=== PATIENT | female | born 1955 | race Caucasian/White ===

== ENCOUNTER → 2016-04-27 | Outpatient (CLI) | payer OTHER ==
[~2016-04-27] MED LIST: CONJ.6255 PO; HYDR-5688 PO; IBUP-1427 PO; LEVO150T9 PO; TAMS0.4C38 PO
--- NOTE | 2016-04-27 11:10 | DIAGNOSTIC IMAGING REPORT ---
KUB CLINICAL HISTORY: Nephrolithiasis COMPARISON STUDY: 04/09/2016 FINDINGS: There is no pathologic bowel dilatation. There is scattered stool throughout the colon. The renal shadows are partially obscured overlying bowel gas and fecal material. No renal calculi are visualized. There are 2 stable left pelvic basin calcifications. The CT scan dated 04/02/2016, revealed 3 dominant left pelvic basin calcifications, one of which was felt to represent a distal ureteral calculus. It is therefore possible that the ureteral calculus has passed. Please correlate with clinical symptoms. IMPRESSION: 1. No renal calculi identified 2. There are 2 stable left pelvic basin calcifications. Electronically signed by: Javier Ramirez M.D. 04/27/2016 11:08 AM
== END | disposition home or self-care (01) ==
LOC: C.RAD 10:46
PROVIDERS: ATTEND Urology
DX: N20.0 Calculus of kidney (principal)

== ENCOUNTER → 2016-06-16 | Outpatient (CLI) | payer OTHER ==
[2016-06-16 15:05] LABS: BLOOD UREA NITROGEN 22 mg/dl (7-18); BUN/CREATININE RATIO 25.8 (10-20); CREATININE 0.85 mg/dl (0.60-1.20)
== END | disposition home or self-care (01) ==
LOC: C.LAB 13:39
PROVIDERS: ATTEND Urology
DX: N13.30 Unspecified hydronephrosis (principal)

== ENCOUNTER → 2016-06-22 | Outpatient (CLI) | payer OTHER ==
[~2016-06-22] MED LIST changes: +OPTIRAY 300 IV PRN
--- NOTE | 2016-06-22 14:24 | DIAGNOSTIC IMAGING REPORT ---
IVP W/OR W/O TOMOGRAMS CLINICAL HISTORY: N13.30 nephrocalcinosis COMPARISON STUDY: Abdomen series dated 04/27/2016 FINDINGS: Survey images of the abdomen show no obstructive change. There are several pelvic vascular calcifications of the left unaltered. 2. Slightly compromised renal function, diminished amount of intravenous contrast was administered at approximately 50% of volume. There is prompt opacification of both liver collecting systems. There is no evidence for hydronephrosis. Bladder fills well with no sign deformity or filling defect. Post void shows a mild degree residual consistent with a component of bladder obstruction. IMPRESSION: 1. Negative study of the upper urinary tracts. 2. No evidence for an obstructing urinary tract calculus. 3. Moderate to rather significant post void residual raising the possibility of bladder outlet obstructive change. Electronically signed by: Serjio Walsh M.D. 06/22/2016 2:22 PM Dictated Date/Time: 06/22/2016 2:06 PM
== END | disposition home or self-care (01) ==
LOC: C.RAD 12:24
PROVIDERS: ATTEND Urology
DX: N13.30 Unspecified hydronephrosis (principal)

== ENCOUNTER → 2016-07-23 | Outpatient (CLI) | payer OTHER ==
[~2016-07-23] MED LIST changes: -OPTIRAY 300 IV PRN
[2016-07-23 12:17] LABS: GLUCOSE,FASTING 90 mg/dl (70-99)
[2016-07-23 12:30] LABS: CHOLESTEROL 220 mg/dl (0-200); CHOLESTEROL/HDL RATIO 2.2; HDL CHOLESTEROL 101 mg/dl; TRIGLYCERIDES 76 mg/dl (0-150); VERY LOW DENSITY LIPOPROT CALC 15 mg/dl
== END | disposition home or self-care (01) ==
LOC: C.LABPBG 08:20
PROVIDERS: ATTEND Physician Assistant Medical
DX: Z00.00 Encounter for general adult medical examination without abnormal findings (principal); E03.9 Hypothyroidism, unspecified

== ENCOUNTER → 2016-12-23 | Outpatient (CLI) | payer OTHER ==
[~2016-12-23] MED LIST changes: -IBUP-1427 PO
== END | disposition home or self-care (01) ==
LOC: C.PAPS 09:16
PROVIDERS: ATTEND Obstetrics & Gynecology
DX: Z12.4 Encounter for screening for malignant neoplasm of cervix (principal)

== ENCOUNTER → 2017-05-12 | Outpatient (CLI) | payer OTHER ==
--- NOTE | 2017-05-12 15:09 | MAMMOGRAPHY REPORT ---
BILATERAL DIGITAL SCREENING MAMMOGRAM TOMOSYNTHESIS WITH CAD: 05/12/2017 CLINICAL HISTORY: Routine screening. Patient has no complaints. TECHNIQUE: Breast tomosynthesis in addition to standard 2D mammography was performed. Current study was also evaluated with a Computer Aided Detection (CAD) system. COMPARISON: Comparison is made to exams dated: 06/15/2007 mammogram, 06/11/2010 mammogram, and 06/17/19 12 mammogram - [facility]. BREAST COMPOSITION: There are scattered areas of fibroglandular density in both breasts. There are involutional changes comparing to prior available mammograms. FINDINGS: Regional asymmetry of the left upper outer quadrant compared to the right is stable dating back to at least 2007, likely the patient's baseline pattern. No suspicious mass, architectural dist ortion or cluster of suspicious microcalcifications is seen. IMPRESSION: ACR BI-RADS CATEGORY 1: NEGATIVE There is no mammographic evidence of malignancy. A 1 year screening mammogram is recommended. The pa tient will receive written notification of the results. Approximately 10% of breast cancers are not detected with mammography. A negative mammographic report should not delay biopsy if a clinically suggestive mass is present. Aster Ryees M.D. ay/:05/12/2017 13:45:03 Clerical Dentist Assistant: Ade CANTOR(R)(M), [facility] letter sent: Normal 1/2 BI-RADS Code: ACR BI-RADS Category 1: Negative
== END | disposition home or self-care (01) ==
LOC: C.MAMM 12:57
PROVIDERS: ATTEND Obstetrics & Gynecology
DX: Z12.31 Encounter for screening mammogram for malignant neoplasm of breast (principal)

== ENCOUNTER 2020-03-06 08:37 | Observation (INO) ==
--- NOTE | 2020-02-13 14:40 | PAT Medication Instructions ---
Medication Instructions Date of Service February 13, 2020 Home Medications aspirin 325 mg PO BID PRN ibuprofen [Advil] 600 mg PO BID PRN levothyroxine [Synthroid] 150 mcg PO QAM ASK your surgeon for instructions ibuprofen [Advil] 600 mg PO BID PRN ASK your prescriber and surgeon aspirin 325 mg PO BID PRN Take morning of surgery With a small sip of water, OTHERWISE NOTHING TO EAT OR DRINK AFTER MIDNIGHT: levothyroxine [Synthroid] 150 mcg PO QAM Other Notes If you have any questions please call us at [phone] or [phone] or [phone] or [phone]
--- NOTE | 2020-02-15 09:28 | Anesthesiology Consultation ---
Date of Service February 15, 2020 Assessment & Plan (1) Encounter for pre-operative examination: COVID Status: As of 02/14 assessment, patient denies travel to endemic area, known exposure/sick contacts, or symptoms of COVID19. Patient instructed that they and their household members must follow strict social distancing guidelines, wear a mask in public and avoid travel/events/crowds for 14 days prior to surgery. Preoperative COVID19 testing to be completed prior to surgery per surgeon's arrangements. Patient made aware to self-isolate as much as possible between COVID testing and surgery. Chart Review Chart Review: Acceptable Risk for Surgery and Patient seen in Pre Admission Testing Teaching & Discussion Instructed NPO after midnight before surgery, except medications with 15 cc of water. Medication instructions provided according to the PAT guidelines. History Surgery Operation Date: 03/06/20 10:55 Proposed Procedures p Right Total Knee Arthroplasty - Nilo Cortez MD Height/Weight Height: 5 ft 5 in Weight: 80.5 kg Allergies Allergy/AdvReac Type Severity Reaction Status Date / Time meperidine [From Demerol] AdvReac NAUSEA/VOMI Verified 02/15/20 09:23 TING Medications Home Medications Medication Instructions Recorded Confirmed Last Taken aspirin 325 mg PO BID PRN 02/12/20 02/12/20 Unknown ibuprofen [Advil] 600 mg PO BID PRN 02/12/20 02/12/20 Unknown levothyroxine [Synthroid] 150 mcg PO QAM 02/12/20 02/12/20 Unknown Past Medical History Medical History (Updated 02/15/20 @ 13:55 by Junaid Gatn) Degenerative arthritis of knee, bilateral Hypothyroidism H/O hyperthyroidism/graves disease and had radiation treatment Kidney stones hx Osteoarthritis Sciatica Exercise / Class Metabolic Activity II 4-5 Yardwork/Stairs/Walk up hill Past Surgical History Surgical History History of lithotripsy History of splenectomy itp History of tonsillectomy and adenoidectomy Hx of arthroscopy of knee right and left Hx of colonoscopy Hx of LASIK right Past Anesthesia History No Hx of Anesthesia Complications and No Family Hx of Anesthesia Complications History of PONV No Hx of PONV (EXCEPT FROM DEMEROL) and Hx of Motion Sickness Social History Smoking Status: Never smoker Do You Dip or Chew Tobacco: No Hx Alcohol Use: No Hx Substance Use: No substance use type: does not use Review of Systems Pt denies any recent chest pain, shortness of breath, palpitations, cough, fever, URI. + occ acid reflux, relieved by tums Physical Exam Vital Signs BP: 138/83 (pt reports this is quite high for her) P: 69bpm SPO2: 97% RA T: 98.3 R: 12 ENMT Mouth: + dental restorations (few crowns on R molars); no chipped teeth and no loose teeth Thyromental Distance: < 3.5 Finger Breadths (2) Mallampati Class: I Neck + shortened thyromental distance; neck extension not limited Respiratory normal respiratory effort Auscultation: lungs clear to auscultation bilaterally Cardiovascular Rate/Rhythm: regular rate and regular rhythm Heart Sounds: no murmur Extremities: no edema Testing Laboratory Results 02/15/20 09:36 02/15/20 09:36 PT 10.3 Seconds (9.0-12.0) 02/15/20 09:36 INR 1.0 (0.9-1.1) 02/15/20 09:36 APTT 27.8 Seconds (21.0-31.0) 02/15/20 09:36 Blood Type O Positive 02/15/20 09:36 Antibody Screen NEGATIVE 02/15/20 09:36 Electrocardiogram Date: 02/15/20 Findings: + NSR @ (66bpm) Nondiagnostic inferior Q waves. No significant change from 2016. Chest X-Ray Date: 02/15/20 Findings: + NAD
--- NOTE | 2020-02-15 10:32 | XRay Report ---
TWO VIEW CHEST CLINICAL HISTORY: Preoperative examination. FINDINGS: PA and lateral chest radiographs are compared to study dated 04/08/2016. The cardiomediasti nal silhouette is unremarkable. The lungs and pleural spaces are clear. There is no pneumothorax. Th e bony thorax appears intact. IMPRESSION: No active disease in the chest. ACT 112: Negative or not required by law. Electronically signed by: Bert Gramajo M.D. 02/15/2020 10:30 AM
[2020-02-15 10:35] LABS: BUN Creatinine Ratio 22.3 (10-20); Calcium 9.4 mg/dl (8.5-10.1); Creatinine Clr Calc Pharmacy 62.2 ml/min; Est GFR (African American) 74.7; Est GFR (Non-African American) 64.4; Potassium 3.7 mmol/L (3.5-5.1)
[2020-02-15 10:38] LABS: Partial Thromboplastin Time 27.8 Seconds (21.0-31.0); Prothrombin Time 10.3 Seconds (9.0-12.0)
[2020-02-15 10:46] LABS: Basophils # (auto) 0.08 K/uL (0-0.2); Basophils % (auto) 1.2 %; Eosinophils % (auto) 3.1 %; Hematocrit (blood only) 39.4 % (37-47); Hemoglobin 13.3 g/dL (12.0-16.0); Lymphocytes # (auto) 1.93 K/uL (1.2-3.4); Lymphocytes % (auto) 30.1 %; Mean Corpuscular Hgb Conc 33.8 g/dL (32-36); Mean Corpuscular Volume 94.7 fL (80-100); Mean Platelet Volume 11.2 fL (7.4-10.4); Monocytes % (auto) 12.5 %; Neutrophils # (auto) 3.41 K/uL (1.4-6.5); Neutrophils % (auto) 53.1 %; Platelet Count 444 K/uL (130-400); RDW Coefficient of Variation 14.9 % (11.5-14.5); RDW Standard Deviation 52.1 fL (36.4-46.3); Red Blood Count 4.16 M/uL (4.2-5.4); White Blood Count 6.42 K/uL (4.8-10.8)
--- NOTE | 2020-02-15 11:20 | Electrocardiogram Report ---
Test Reason : Blood Pressure : / mmHG Vent. Rate : 066 BPM Atrial Rate : 066 BPM P-R Int : 170 ms QRS Dur : 082 ms QT Int : 418 ms P-R-T Axes : 069 076 057 degrees QTc Int : 438 ms Normal sinus rhythm Nondiagnostic inferior Q waves Normal ECG When compared with ECG of 02-OCT-2015 15:42, No significant change was found Confirmed by Donovan Dye ([id number]) on 02/15/2020 11:20:42 AM Referred By: Nilo Cortez Confirmed By:Donovan Dye
[~2020-03-06 08:37] MED LIST changes: +ACETAMINOPHEN 500 MG TAB PO SCH; +BUPIVACAINE 0.25% 30 ML VIAL ONE; +BUPIVACAINE 0.5 % 5 MG/1 ML PF 10ML VIAL ONE; +BUPIVACAINE LIPOSOME/PF 266 MG, BUPIVACAINE/EPINEPHRINE 50 ML, SODIUM CHLORIDE 0.9% 30 ... INFIL SCH; -CONJ.6255 PO; +FAMOTIDINE 20 MG TAB PO SCH; +GABAPENTIN 300 MG CAP PO SCH; -HYDR-5688 PO; -LEVO150T9 PO; +LR 500ML BOLUS, THEN 15ML/HR IV SCH; +LR 60ML/HR IV SCH; -TAMS0.4C38 PO; +TRANEXAMIC ACID 1,000 MG **IV Intra-op IV SCH; +ceFAZolin 2000MG 2,000 MG/15 ML SYR IV SCH
--- NOTE | 2020-03-06 09:00 | History & Physical Bridge Note ---
Date of Service March 06, 2020 History & Physical Bridge Note I have examined the patient, reviewed the History & Physical and in the interval since the performance of the History & Physical I have noted the following changes of clinical significance: no changes noted
[2020-03-06] MEDS ORDERED: LIDOCAINE HCL 2% 2 ML VIAL/AMP(20MG/ML) INFIL ONE (09:43)
[2020-03-06] MEDS ORDERED: ePHEDrine sulfate 50 MG/ML SYR ONE (09:43)
[2020-03-06] MEDS ORDERED: MIDAZOLAM HCL 1 MG/ML 2ML VIAL ONE ×2 (09:43→09:44)
[2020-03-06] MEDS ORDERED: fentaNYL citrate 100 MCG/2 ML VIAL ONE (09:43)
[2020-03-06] MEDS ORDERED: PROPOFOL IV EMULSION 10 MG/ML 20 ML VIAL IV ONE ×2 (09:43→12:01)
[2020-03-06] MEDS ORDERED: ATROPINE SULFATE 0.1 MG/ML 10ML SYR IV PRN (09:57)
[2020-03-06] MEDS ORDERED: ONDANSETRON INJ 2 MG/ML 2 ML VIAL IV PRN (09:57)
[2020-03-06] MEDS ORDERED: fentaNYL citrate 100 MCG/2 ML VIAL IV PRN (09:57)
[2020-03-06] MEDS ORDERED: ePHEDrine sulfate 50 MG/ML AMP IV PRN (09:57)
[2020-03-06] MEDS ORDERED: ONDANSETRON INJ 2 MG/ML 2 ML VIAL IV STA ×2 (09:59→10:08)
[2020-03-06] MEDS ORDERED: ONDANSETRON INJ 2 MG/ML 2 ML VIAL ONE ×2 (10:01→12:09)
[2020-03-06] MEDS ORDERED: PROMETHAZINE HCL 6.25 MG in SODIUM CHLORIDE 0.9% 50 ML IV STA (10:15)
[2020-03-06] MEDS ORDERED: SODIUM CHLORIDE 0.9% PF 50 ML VIAL ONE (11:27)
[2020-03-06] MEDS ORDERED: BUPIVACAINE LIPOSOME 1.3% 266 MG/20 ML VIAL ONE (11:27)
[2020-03-06] MEDS ORDERED: BACITRACIN INJ 50,000 UNIT VIAL ONE (11:27)
[2020-03-06] MEDS ORDERED: BUPIVACAINE 0.25% 30 ML VIAL ONE (11:28)
[2020-03-06] MEDS ORDERED: EPINEPHrine INJ 1 MG/ML AMP ONE (11:28)
--- NOTE | 2020-03-06 13:12 | Post Operative Brief Note ---
PG Immediate Post Op with CF Date of Surgery March 06, 2020 Pre & Post Diagnosis Operation Date: 03/06/20 10:55 Pre-Op Diagnosis: Right Knee Degenerative Joint Disease Post-Op Diagnosis: Right Knee Degenerative Joint Disease I identified the patient and participated in the time-out.: Yes Procedure Operation Date: 03/06/20 10:55 Actual Procedures p Right Total Knee Arthroplasty, Cemented(Right) - Nilo Cortez MD Surgeon Nilo Cortez MD Burn Crew Member ANDREA Chaidez Estimated Blood Loss 50 Findings Consistent with Post-Op Diagnosis Fluids 2000 cc Specimens Specimen Description: Permanent Specimen A: Right knee bone and tissue Drains Pack Catheter Anesthesia Type Spinal MAC Complications none Disposition Accompanied Patient To Recovery: No Disposition: Recovery Room
--- NOTE | 2020-03-06 13:24 | Operative Report ---
Post Operative Report Pre & Post Diagnosis Operation Date: 03/06/20 10:55 Pre-Op Diagnosis: Right Knee Degenerative Joint Disease Post-Op Diagnosis: Right Knee Degenerative Joint Disease I identified the patient and participated in the time-out.: Yes Procedure Operation Date: 03/06/20 10:55 Actual Procedures p Right Total Knee Arthroplasty, Cemented(Right) - Nlio Cortez MD Surgeon Nilo Cortez MD Assistant Baseball Coach ANDREA Chaidez Estimated Blood Loss 50 Findings Consistent with Post-Op Diagnosis Operative findings revealed advanced right knee DJD. She had slight valgus alignment to her knee. She did have grade 4 changes the lateral compartment as well as patellofemoral compartments. Not a lot of eburnation. She did have a little eburnation of her trochlea. Moderate to large knee joint effusion. Fluids 2000 cc. Specimens Right knee sent for pathology. Drains None. Anesthesia Type Spinal MAC Complications none Disposition Accompanied Patient To Recovery: No Disposition: Recovery Room Indications Patient is a 65-year-old female has had a long history of bilateral knee pain and discomfort and swelling. She underwent a right knee arthroscopy about 6 years ago for patellofemoral issues and had a lateral release. She did okay for a couple years but over the past several years she developed increased pain and discomfort in both knees. The right knee has been worse than the left. X-rays show progressive right knee arthritis particularly in the lateral and greene llofemoral compartments. She elected proceed with surgical treatment Description of Procedure Operative implants consist of: 1. Biomet Vanguard size 62.5 right posterior stabilized femoral component. 2. Biomet size 63 tibial tray. 3. 10 mm posterior stabilized polyethylene insert. 4. 28 x 8 all polypatella. Patient was taken to the operating identified placed on the operating table supine position protectors were properly padded. IV antibiotics tried by the anesthesia team. A Pack catheter was placed in sterile fashion. Right thigh turn was then placed in the right lower extremity was then prepped and draped in usual sterile fashion. The right leg was elevated exsanguinated with use of an Esmarch and turns placed at 3 mmHg. An anterior approach to the right knee was then performed to longitudinal incision centered over the patella. Sharp dissection was carried through subcutaneous tissue down the extensor mechanism. A medial parapatellar arthrotomy incision was made. Some subperiosteal dissection was carried out medially. The fat pad was resected beneath patella tendon. Lateral patellofemoral ligament was released. The patella was subluxated laterally and the knee was flexed. The osteophytes were taken off the distal femur. The ACL and PCL were then released from the distal femur and the tibia subluxated anter iorly. The external tibial alignment jig was then placed in the interface the tibia and adjusted 12 mm medially. Proximal tibial cut was made to remove about 3 to 4 mm of bone from the medial side. The tibia was then sized to a size 63. We did have to downsize this in order to get appropriate rotation with respect of the tibial tubercle. Attention then drawn to the femur. The distal femur was entered the sharp drop with intramedullary canal was suction. A right 5 degree valgus cutting guide was placed. Distal femoral cutting block was pinned in place. Distal femoral cut was made to take an additional 3 mm of bone off distal femur. The femur was then sized to a size 62.5. The AP cutting block was then placed parallel to the epicondylar axis which was 4 degrees of external rotation. The anterior cut, anterior chamfer, posterior cut, posterior chamfer cuts were made. Box cutting guide was placed in a just slight lateral box cut was made. The knee was flexed. The remnants of the medial lateral menisci were excised. The osteophytes were taken off the posterior aspect of the femur. A trial femoral component was placed. Tibial tray was pinned in maximum external rotation and the drill and stem punch were used to create defect in proximal to for the tibial tray. The knee was then trialed and the 10 mm insert fit most appropriately. Attention drawn the patella. The patella was cleaned of all soft tissues. Patella thickness measured 18 mm in thickness and was cut down to 12. Was sized to a size 28 patella. The locals were drilled for the 28 patella. The lateral osteophyte is moved. Patella button was placed. Knee was taken through range of motion and the patella tracked nicely with no thumbs test. Attention drawn to place the permanent components. All trial components were removed. A bone plug was placed in the distal femur limit blood loss put a double batch Palacos G cement was mixed. A Biomet Wellntelguard size 62.5 right posterior stabilized femoral component, a size 63 tibial tray, a 10 mm posterior stabilized polyethylene insert, and a 28 x 8 all polypatella were then cemented in place. Knee was brought out in full extension total cement hardened. Final cement check was then performed. The pericapsular tissues were injected with total 100 cc of combination of 20 cc of Exparel, 30 cc normal saline, 50 cc of quarter percent Marcaine with epinephrine. The patient did receive 1 g tranexamic acid. The tourniquet was then let down for final tourniquet time of 47 minutes. Hemostasis assured use electrocautery. The wound was once again irrigated. The extensor mechanism closed with combination 1 PDS suture #1 Vicryl suture in [id number] fashion. Extensor mechanism checked found to be intact with subcutaneous tissue then closed 2 Dexon suture in a buried interrupted fashion the skin was closed skin marcia. Leg was then cleaned dried a sterile dressing both Xeroform, 4 x 4's, sterile cast padding, Umesh bandage were applied. Patient then transferred to the recovery room in stable condition. The patient tolerated the procedure well and there were no complications. Orlando Chaidez, my physician materials assistant, was present for the entire procedure. His assistance was essential and required for appropriate patient positioning, prepping and draping, surgical exposure, performing the technical details of the operation, placement the implants, closure of the wound, and placement of the sterile bandage. I attest to the content of the Intraoperative Record and any orders documented therein. Any exceptions are noted below.
--- NOTE | 2020-03-06 14:06 | XRay Report ---
XR knee RT 1 or 2V routine HISTORY: 65 years-old Female Surgical Post Op right knee total joint arthroplasty COMPARISON: Knee radiographs 02/08/2020 TECHNIQUE: 2 views of the right knee FINDINGS: Right knee total joint arthroplasty and patella resurfacing. Anterior midline skin marcia are noted along with expected postsurgical soft tissue swelling and deep tissue air with surgical drainage cath eter. IMPRESSION: Right knee total joint arthroplasty and patella resurfacing with expected postoperative c hanges. ACT 112: Negative or not required by law. The above report was generated using voice recognition software. It may contain grammatical, syntax o r spelling errors. Electronically signed by: Logan Boyd M.D. 03/06/2020 2:04 PM
--- NOTE | 2020-03-06 14:31 | Anesthesiology Progress Note ---
Date of Service March 06, 2020 Anesthesia Post Procedure Vital Signs Vital Signs: Temp Pulse Pulse Resp BP BP Pulse Ox 03/06/20 14:05 72 14 126/63 96 03/06/20 13:55 71 14 131/49 L 100 03/06/20 13:45 73 14 123/60 100 03/06/20 13:35 73 12 124/67 96 03/06/20 13:25 82 14 114/62 98 03/06/20 13:18 36.6 C 86 10 L 107/54 L 99 03/06/20 09:50 76 18 162/93 H 100 03/06/20 09:15 36.8 C 72 20 151/87 H 98 Pain Intensity Right Knee: Pain Intensity: 6 Transfer of Care Handoff Completed per policy Notes Mental Status: alert / awake / arousable and participated in evaluation Patient Amnestic to Procedure: Yes Nausea / Vomiting: adequately controlled Pain: adequately controlled Airway Patency, RR, SpO2: stable & adequate BP & HR: stable & adequate Hydration State: stable & adequate Neuraxial Anesthesia: was administered and sensory block is resolving Anesthetic Complications: no major complications apparent and Pt Satisfied with anesthetic care
[2020-03-06] MEDS ORDERED: HYDROmorphone INJ 0.5 MG/0.5 ML SYR IV PRN (14:37)
[2020-03-06] MEDS ORDERED: bisacodyL 10 MG SUPP PR PRN (14:45)
[2020-03-06] MEDS ORDERED: METOCLOPRAMIDE HCL INJ 5 MG/ML 2 ML VIAL IV PRN (14:45)
[2020-03-06] MEDS ORDERED: NALOXONE HCL 0.4 MG/1 ML VIAL/CARP IV PRN (14:45)
[2020-03-06] MEDS ORDERED: ALUMINUM/MAGNESIUM SUSP 30 ML UDC PO PRN (14:45)
[2020-03-06] MEDS ORDERED: MAGNESIUM HYDROXIDE SUSP 30 ML UDC PO PRN (14:45)
[2020-03-06] MEDS: ONDANSETRON INJ 2 MG/ML 2 ML VIAL IV PRN (14:56)
[2020-03-06] MEDS ORDERED: LORATADINE 10 MG TAB PO PRN (15:00)
[2020-03-06] MEDS: KETOROLAC TROMETHAMINE 15 MG/ML VIAL IV SCH ×2 (15:50→21:08)
[2020-03-06] MEDS: SODIUM CHLORIDE 0.9% 1000ML 1,000 ML IV SCH (15:51)
[2020-03-06] MEDS: Scopolamine CHECK PATCH PLACEMENT SCH (15:51)
[2020-03-06] MEDS: ACETAMINOPHEN 500 MG TAB PO SCH ×2 (15:51→21:07)
[2020-03-06] MEDS: FERROUS GLUCONATE 324 MG TAB PO SCH (17:27)
[2020-03-06] MEDS: oxyCODONE HCL IR 5 MG TAB (IMMEDIATE RELEASE) PO PRN (17:27)
[2020-03-06] MEDS: ASCORBIC ACID 500 MG TAB PO SCH (17:27)
[2020-03-06] MEDS ORDERED: TRANEXAMIC ACID / 0.7% NACL 1,000 MG/100 ML BAG IV SCH (19:15)
[2020-03-06] MEDS: ceFAZolin 1000MG 1,000 MG/7.5 ML SYR IV SCH (19:41)
[2020-03-06] MEDS ORDERED: SENNA 8.6 MG TAB PO SCH (21:00)
[2020-03-06] MEDS: TAPENTADOL HCL ER 50 MG TABCR PO SCH (21:07)
[2020-03-06] MEDS: ASPIRIN 81 MG ECTAB PO SCH (21:07)
[2020-03-06] MEDS: DOCUSATE SODIUM 100 MG CAP PO SCH (21:07)
[2020-03-07] MEDS: Scopolamine CHECK PATCH PLACEMENT SCH ×2 (00:01→09:00)
[2020-03-07] MEDS: oxyCODONE HCL IR 5 MG TAB (IMMEDIATE RELEASE) PO PRN ×3 (00:23→12:04)
[2020-03-07] MEDS: SODIUM CHLORIDE 0.9% 1000ML 1,000 ML IV SCH (02:09)
[2020-03-07] MEDS: ceFAZolin 1000MG 1,000 MG/7.5 ML SYR IV SCH (03:34)
[2020-03-07] MEDS: KETOROLAC TROMETHAMINE 15 MG/ML VIAL IV SCH ×2 (03:34→09:02)
[2020-03-07] MEDS: ACETAMINOPHEN 500 MG TAB PO SCH (05:16)
[2020-03-07] MEDS ORDERED: LEVOTHYROXINE SODIUM 150 MCG TABLET PO SCH (06:30)
[2020-03-07 07:11] LABS: Hematocrit (blood only) 33.8 % (37-47); Hemoglobin 10.8 g/dL (12.0-16.0); Mean Corpuscular Hemoglobin 30.9 pg (25-34); Mean Corpuscular Volume 96.6 fL (80-100); Mean Platelet Volume 11.1 fL (7.4-10.4); Platelet Count 372 K/uL (130-400); RDW Coefficient of Variation 15.2 % (11.5-14.5); RDW Standard Deviation 53.7 fL (36.4-46.3); White Blood Count 9.33 K/uL (4.8-10.8)
[2020-03-07 07:41] LABS: BUN Creatinine Ratio 18.4 (10-20); Calcium 8.2 mg/dl (8.5-10.1); Creatinine Clr Calc Pharmacy 71.2 ml/min; Est GFR (African American) 88.4; Est GFR (Non-African American) 76.3; Potassium 3.7 mmol/L (3.5-5.1)
--- NOTE | 2020-03-07 08:32 | Progress Notes ---
DATE: 03/07/2020 SUBJECTIVE: A 65-year-old white female postop day 1 from right knee replacement. She is doing pretty well. Had a reasonable night. Pain has been controlled. No chest pain or shortness of breath. Not feeling dizzy or lightheaded. OBJECTIVE: VITAL SIGNS: Temperature is 36.3. Vital signs stable. GENERAL: Shows a pleasant, middle-aged female. She is lying in bed, looks pretty comfortable this morning. EXTREMITIES: Examination of the right leg reveals the leg to be well aligned. Dressing is clean, dry and intact. She can dorsiflex and plantarflex her foot appropriately. She is neurologically intact. LABORATORY DATA: Hemoglobin 10.8. Hematocrit 33.8. Electrolytes are pending. ASSESSMENT: A 65-year-old white female postoperative day 1 from right knee replacement, doing reasonably well. Pain is controlled. She is neurologically intact. PLAN: 1. DVT prophylaxis including thigh-high TEDs, SCDs, and aspirin twice a day. 2. PT/OT. Weight bear as tolerated. Right total knee protocol. 3. Pain control, doing well with current pain regimen. 4. Disposition: Plan to discharge to home with some home health later today if she does okay in therapy and her pain is controlled.
[2020-03-07] MEDS: FERROUS GLUCONATE 324 MG TAB PO SCH (09:00)
[2020-03-07] MEDS: DOCUSATE SODIUM 100 MG CAP PO SCH (09:00)
[2020-03-07] MEDS ORDERED: MULTIVITAMIN TAB PO SCH (09:00)
[2020-03-07] MEDS: ASCORBIC ACID 500 MG TAB PO SCH (09:00)
[2020-03-07] MEDS: TAPENTADOL HCL ER 50 MG TABCR PO SCH (09:00)
[2020-03-07] MEDS: ASPIRIN 81 MG ECTAB PO SCH (09:00)
[2020-03-07 11:08] VITALS: PULSE 77; TEMP 97.9
[2020-03-07 11:50] VITALS: O2SAT 96
[2020-03-07 11:58] VITALS: BP 162/93
[2020-03-07] MEDS: ONDANSETRON INJ 2 MG/ML 2 ML VIAL IV PRN (12:07)
--- NOTE | 2020-03-11 15:35 | Discharge Summary ---
Date of Service March 11, 2020 Admission HPI Per Admitting Provider Documented in the H & P Admission Exam (Per Admitting) Constitutional Documented in the H & P Discharge Data Consultations 03/06/20 14:37 Consult Case Management - Discharge Planning Routine Procedures Performed Operation Date: 03/06/20 10:55 Actual Procedures p Right Total Knee Arthroplasty, Cemented(Right) - Nilo Cortez MD Hospital Course (1) Status post total right knee replacement: This patient is a 65 year old female admitted on 03/06/20 and underwent total knee arthroplasty. She tolerated the procedure well and there were no complications. Transferred to the PACU post op and later to the orthopedic floor for further care. She was given ancef for antibiotic prophylaxis. She was also given JITENDRA stockings, SCDs, and aspirin for DVT prophylaxis. Hemoglobin, hematocrit, and vital signs were monitored during her hospital stay and remained stable. Did not require any blood transfusions. There were no complications during her hospital stay. By post op day #1 the patient was tolerating a regular diet, pain was reasonably controlled with oral pain medicine, and she was participating in physical therapy. On post op day #1 the patient was discharged home and set up with home health care. She was given printed discharge instructions including prescriptions for extra strength tylenol, aspirin, iron supplement, zofran, and tramadol. Continue physical therapy, weight bearing as tolerated. Continue JITENDRA stockings. Follow up approximately 2 weeks post op or sooner if there are problems or concerns. Coding Level of Care Code None Diagnoses Status post total right knee replacement Z96.651
== END 2020-03-07 12:52 | disposition home health service (06) ==
LOC: 3E 08:37 → ASU 08:37
DX: Z79.899 Other long term (current) drug therapy; Z79.890 Hormone replacement therapy; M17.11 Unilateral primary osteoarthritis, right knee; Z79.82 Long term (current) use of aspirin; E66.9 Obesity, unspecified; M54.30 Sciatica, unspecified side; E03.9 Hypothyroidism, unspecified; M70.61 Trochanteric bursitis, right hip; K21.9 Gastro-esophageal reflux disease without esophagitis; Z88.5 Allergy status to narcotic agent

== ENCOUNTER 2024-03-02 19:48 | Inpatient (IN) ==
[2024-03-02 20:25] LABS: Basophils # (auto) 0.11 K/uL (0.00-0.20); Basophils % (auto) 0.4 %; Eosinophils # (auto) 13.17 K/uL (0.00-0.50); Eosinophils % (auto) 48.9 %; Hematocrit (blood only) 34.9 % (37.0-47.0); Hemoglobin 12.4 g/dl (12.0-16.0); Immature Granulocytes # (auto) 0.12 K/uL (0.01-0.20); Immature Granulocytes % (auto) 0.4 %; Lymphocytes # (auto) 2.46 K/uL (1.20-3.40); Lymphocytes % (auto) 9.1 %; Mean Corpuscular Hemoglobin 31.2 pg (25.0-34.0); Mean Corpuscular Hgb Conc 35.5 g/dL (32.0-36.0); Mean Corpuscular Volume 87.9 fL (80.0-100.0); Mean Platelet Volume 10.1 fL (9.4-12.4); Monocytes # (auto) 1.14 K/uL (0.11-0.59); Monocytes % (auto) 4.2 %; Neutrophils # (auto) 9.92 K/uL (1.40-6.50); Platelet Count 493 K/uL (130-400); RDW Coefficient of Variation 14.2 % (11.5-14.5); RDW Standard Deviation 45.7 fL (36.4-46.3); Red Blood Count 3.97 M/uL (4.20-5.40); White Blood Count 26.92 K/ul (4.8-10.8)
[2024-03-02 20:41] LABS: Albumin Level 3.7 gm/dl (3.4-5.0); Bilirubin,Total 0.4 mg/dl (0.2-1.0); Calcium 9.8 mg/dl (8.6-10.3); Creatinine Clr Calc Pharmacy 46.4 ml/min; Globulin 3.7 gm/dl (2.5-4.0); Total Protein 7.4 gm/dl (6.0-8.3)
[2024-03-02 20:58] LABS: Appearance Urine Clear (Clear); Bilirubin Urine Negative (Negative); Blood Urine Negative (Negative); Color Urine Yellow; Glucose Urine UA Negative (Negative); Ketones Urine Negative (Negative); Leukocyte Esterase Urine Negative (Negative); Nitrite Urine Negative (Negative); Protein Urine Negative (Negative); Specific Gravity Urine 1.009 (1.000-1.030); Urobilinogen Urine Negative (Negative); pH Urine 6.5 (4.5-7.5)
--- NOTE | 2024-03-02 21:23 | Emergency Department Note ---
Impression & Plan Abdominal pain, Leukocytosis, Abnormal LFTs, Lesion of liver ED Provider Note ED Provider Note NAME: CHERISE MORALES AGE:69 SEX: Female : 1955 ARRIVES VIA: Private vehicle INFORMANT: Patient ED PROVIDER(s): Chanda Wright DO CHIEF COMPLAINT: Referred by PCP, right upper quadrant abdominal pain HPI: This is a 69-year-old female presents emergency department after being referred here by her PCP due to abnormal outpatient labs. Patient states for the last 2 to 3 days she has noticed some increased fatigue, mild back pain, right upper quadrant pain, and fevers. She has been taking Advil intermittently. She states her temperatures at home was 100 F but this was after she had already taken Advil. She states many years ago she did have a history of a bleeding ulcer however has not had any issues in recent years and no longer takes any stomach medications. She denies any recent upper respiratory symptoms or cough. She denies any sense of abdominal pain or bloating. She states the pain is otherwise nonradiating. She states she also has some pain across her low back. She denies any recent travel or change in activity. PAST MEDICAL HISTORY:See Below PAST SURGICAL HISTORY:See Below FAMILY HISTORY:See Below SOCIAL HISTORY:See Below HOME MEDICATIONS:See Below ALLERGIES:See Below VITALS:See Below PHYSICAL EXAMINATION: GENERAL: alert, well appearing, well nourished, no distress, non-toxic EYE EXAM: normal conjunctiva, PERRL and EOM's grossly intact OROPHARYNX: no exudate, no erythema, lips, buccal mucosa, and tongue normal and mucous membranes are moist NECK: supple, no nuchal rigidity, no adenopathy, non-tender LUNGS: Clear to auscultation. Normal chest wall mechanics, no w/r/r HEART: no murmurs, S1 normal and S2 normal ABDOMEN: abdomen soft, tenderness with palpation along the right costal margin in the right upper quadrant, normo-active bowel sounds, no masses, no rebound or guarding. SKIN: no rashes, petechiae, orbruising UPPER EXTREMITIES: upper extremities are grossly normal. FROM, nml pulses b/l. LOWER EXTREMITIES: No pitting edema. FROM, nml pulses b/l. NEURO EXAM: Normal sensorium, cranial nerves II-XII grossly intact, normal speech, no facial droop,nogross weakness of arms, no gross weakness of legs. Gross sensation intact. No ataxia. Vital Signs: reviewed and remarkable Differential Diagnosis: Cholecystitis, choledocholithiasis, pancreatitis, pneumonia, colitis, bowel obstruction, GI bleed, duodenitis, as well as others were considered MEDICAL DECISION MAKING: This is a 69-year-old female who presents emergency room due to concern for right upper quadrant abdominal pain and mild fever at home over the last 2 days. Patient concern for possible gallbladder problem. She was afebrile and hemodynamically stable on arrival. Labs drawn and sent, IV established, EKG performed at bedside interpreted by me and patient monitored on telemetry. Patient noted to have significant leukocytosis, procalcitonin and lactic acid added and patient given a dose of IV Zosyn. Patient sent for right upper quadrant ultrasound initially. This was ultimately read by outside overnight radiology as negative. Due to concern for abnormal LFTs and significant leukocytosis as noted on labs, she was sent for CT of the abdomen/pelvis. CT revealed multiple hepatic lesions suggestive of possible metastatic process. Patient with no prior history of malignancy and recent negative screening colonoscopy. Patient updated on all results and we discussed differential diagnosis at bedside. Case discussed with on-call hospitalist as well as on- call GI. Consultation(s): 0335: Discussed with Dr. Garcia, [facility] hospitalist team, for additional evaluation and management. 0358: Discussed with Dr. Watts, GI. Recommends oncology consult and possibly ID. No role for MR right now, patient likely to need PET instead. 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 She also had thyroid dysfunction at that time. She states this autoimmune dysfunction presented itself again last year and she was ultimately diagnosed in May as a type I diabetic. Patient did just recently have a routine screening colonoscopy that was reported to her as reassuring. No prior history of malignancy. Diagnostics Interpreted By Me: -ECG: Normal sinus at 74, normal axis, normal intervals, no acute ST/T wave changes -Cardiac Monitoring: An order was placed for continuous cardiac monitoring. The monitor shows a rate of 70 with normal sinus rhythm. -Laboratory studies: As stated above and show below. -Imaging studies: US abd: no gallstones Triage Nursing Note Reviewed Prior/Outside Records Reviewed Past Med/Surg History Problem List Lesion of liver (Acute) Eosinophilia Abnormal CT of liver Abnormal LFTs (Acute) Leukocytosis (Acute) Abdominal pain (Acute) Type 1 diabetes mellitus Colon cancer screening Vitamin D deficiency Hyperlipidemia SILVA (dyspnea on exertion) Dizziness Tachycardia Foot pain, left CMC arthritis, thumb, degenerative Nephrolithiasis Urgency incontinence Left foot pain Left knee DJD Contusion of right elbow Status post total right knee replacement Encounter for preoperative screening laboratory testing for COVID-19 virus Trochanteric bursitis, right hip Degenerative arthritis of knee, bilateral Renal colic (Acute) Hypothyroidism Sciatica History of splenectomy itp Medical History History of tachycardia [facility] Diabetes mellitus recent diagnosis. following with [facility]. History of Graves' disease History of radioactive iodine thyroid ablation History of ITP Kidney stones hx Osteoarthritis Surgical History History of right knee joint replacement Hx of colonoscopy History of lithotripsy Hx of LASIK right Hx of arthroscopy of knee right and left History of tonsillectomy and adenoidectomy Social History Smoking Status: Never smoker Second Hand Exposure: No; Do You Dip or Chew Tobacco: No; Tobacco Cessation Education Requested by Patient: No Hx Alcohol Use: No Hx Substance Use: No Preferred Language: Bruneian Communication Ability: Effective [employer] Required: No Beliefs That Will Affect Care: None marital status: Current Living Situation: Spouse Other Information That Helps Us Care for You: No Feels Safe at Home: Yes Safety Concerns: Feels Safe At This Time Assistive Devices: None Allergies Allergies Allergy/AdvReac Type Severity Reaction Status Date / Time meperidine [From Demerol] AdvReac Severe NAUSEA/VOMI Verified 11/30/23 14:09 TING Home Meds Home Medications Medication Instructions Recorded Confirmed ibuprofen 200 mg tablet (Advil) 600 mg PO BID PRN Pain 02/12/20 03/03/24 melatonin 10 mg capsule 10 mg PO HS PRN Sleep 06/02/23 03/03/24 lisinopril 2.5 mg tablet 2.5 mg PO QDL 06/30/23 03/03/24 rosuvastatin 20 mg tablet (Crestor) 20 mg PO QDL 06/30/23 03/03/24 lisinopril 2.5 mg tablet 2.5 mg PO QPM 03/03/24 03/03/24 omeprazole 20 mg capsule,delayed 20 mg PO DIRECTED PRN reflux 03/03/24 03/03/24 release Previous Rx's Medication Instructions Recorded blood sugar diagnostic (OneTouch #100 ea 04/05/23 Verio test strips) blood-glucose meter (OneTouch #1 ea 04/05/23 Verio Reflect Meter) lancets 33 gauge (OneTouch Delica #100 ea 04/05/23 Plus Lancet) pen needle, diabetic 32 gauge x #100 ea 04/28/23 5/16" (Droplet Pen Needle) pen needle, diabetic 31 gauge x #400 ea 06/02/23 1/4" (Microdot Insulin Pen Needle) insulin pump cart,automated,BT #10 ea 09/02/23 (Omnipod 5 G6 Pods (Gen 5) subcutaneous cartridge) insulin pump cartridge,automated #1 ea 09/02/23 dose,BT with controller subcutaneous (Omnipod 5 G6 Intro Kit (Gen 5) subcutaneous cartridge with controller) blood sugar diagnostic (Embrace #100 ea 09/24/23 PRO test strips) levothyroxine 100 mcg tablet 100 mcg PO DAILY #90 tabs 12/15/23 insulin lispro 100 unit/mL 66 unit (0.66 mL) continuous 12/30/23 subcutaneous solution (Humalog subcutaneous infusion DAILY #60 mL U-100 Insulin) Results & Data (ED) Vital Signs Vital Signs - 24 hr 03/02/24 19:53 03/02/24 20:38 03/02/24 20:57 Temperature 36.8 C Temperature Source Oral Pulse Rate 83 75 Pulse Rate [Finger] 72 Pulse Rhythm [Finger] Pulse Strength [Finger] Respiratory Rate 20 16 Respiratory Effort / Characteristics Respiratory Depth Blood Pressure 130/73 Blood Pressure [Left Arm] 142/79 H Blood Pressure Mean 92 Blood Pressure Mean [Left Arm] 100 Pulse Oximetry 97 99 Oxygen Delivery Method Room Air Room Air Sepsis Recent Fever Within 48 Hours Yes Sepsis New/Unexplained Change in Mental Status No Sepsis Action Taken by Nursing No Action Required 03/03/24 00:38 03/03/24 02:00 Temperature Temperature Source Pulse Rate 67 Pulse Rate [Finger] 82 Pulse Rhythm [Finger] Regular Pulse Strength [Finger] Normal Respiratory Rate 16 Respiratory Effort / Characteristics Non-Labored Spontaneous Respiratory Depth Normal Blood Pressure Blood Pressure [Left Arm] 117/67 Blood Pressure Mean Blood Pressure Mean [Left Arm] 83 Pulse Oximetry Oxygen Delivery Method Sepsis Recent Fever Within 48 Hours Sepsis New/Unexplained Change in Mental Status Sepsis Action Taken by Nursing Laboratory Data 03/04/24 06:42 03/04/24 06:42 Lab Results 03/02/24 03/02/24 03/02/24 Range/Units 20:05 20:15 21:16 WBC 26.92 H (4.8-10.8) K/ul RBC 3.97 L (4.20-5.40) M/uL Hgb 12.4 (12.0-16.0) g/dl Hct 34.9 L (37.0-47.0) % MCV 87.9 (80.0-100.0) fL MCH 31.2 (25.0-34.0) pg MCHC 35.5 (32.0-36.0) g/dL RDW Std Deviation 45.7 (36.4-46.3) fL RDW Coeff of Abel 14.2 (11.5-14.5) % Plt Count 493 H (130-400) K/uL MPV 10.1 (9.4-12.4) fL Immature Gran % (Auto) 0.4 % Neut % (Auto) 37.0 % Lymph % (Auto) 9.1 % [place] % (Auto) 4.2 % Eos % (Auto) 48.9 % Baso % (Auto) 0.4 % Neut # (Auto) 9.92 H (1.40-6.50) K/uL Lymph # (Auto) 2.46 (1.20-3.40) K/uL [place] # (Auto) 1.14 H (0.11-0.59) K/uL Eos # (Auto) 13.17 H (0.00-0.50) K/uL Baso # (Auto) 0.11 (0.00-0.20) K/uL Immature Gran # (Auto) 0.12 (0.01-0.20) K/uL Sodium 134 L (136-145) mmol/L Potassium 4.0 (3.5-5.1) mmol/L Chloride 98 (98-107) mmol/L Carbon Dioxide 29 (21-32) mmol/L Anion Gap 7 (3-11) BUN 17 (6-23) mg/dl Creatinine 1.00 (0.6-1.2) mg/dl Est Cr Clr Drug Dosing 46.4 ml/min eGFR 60.23 BUN/Creatinine Ratio 17.0 (10-20) Glucose 191 H (70-99(Fasting)) mg/dl Calcium 9.8 (8.6-10.3) mg/dl Total Bilirubin 0.4 (0.2-1.0) mg/dl AST 109 H (13-39) U/L ALT 144 H (7-52) U/L Alkaline Phosphatase 220 H (34-104) U/L Total Protein 7.4 (6.0-8.3) gm/dl Albumin 3.7 (3.4-5.0) gm/dl Globulin 3.7 (2.5-4.0) gm/dl Albumin/Globulin Ratio 1.0 (0.9-2) Lipase 28 (11-82) U/L Procalcitonin 2.80 H (0-0.5) ng/ml Urine Color Yellow Urine Appearance Clear (Clear) Urine pH 6.5 (4.5-7.5) Ur Specific [place] 1.009 (1.000-1.030) Urine Protein Negative (Negative) Urine Glucose (UA) Negative (Negative) Urine Ketones Negative (Negative) Urine Blood Negative (Negative) Urine Nitrite Negative (Negative) Urine Bilirubin Negative (Negative) Urine Urobilinogen Negative (Negative) Ur Leukocyte Esterase Negative (Negative) Administered Medications Piperacillin Sod/Tazobactam Sod (Zosyn) 4.5 gm in 100 mls @ 25 mls/hr IV Q8H [facility]; Protocol Stop: 03/13/24 13:29 Last Infusion: 03/04/24 17:41 Dose: Infused Documented By: Admin: 03/04/24 13:19 Dose: 25 mls/hr Documented By: Infusion: 03/04/24 09:17 Dose: Infused Documented By: Admin: 03/04/24 05:19 Dose: 25 mls/hr Documented By: Infusion: 03/04/24 01:15 Dose: Infused Documented By: Admin: 03/03/24 20:55 Dose: 25 mls/hr Documented By: Infusion: 03/03/24 17:09 Dose: Infused Documented By: Admin: 03/03/24 13:08 Dose: 25 mls/hr Documented By: RACHAEL Insulin Aspart (Insulin Aspart Per Unit Charge) 0 units SC ACHS HUONG Stop: 04/02/24 05:59 Last Admin: 03/04/24 16:50 Dose: 8 units Documented By: MOISES Co-signed By: SHEILA Admin: 03/04/24 11:48 Dose: 7 units Documented By: MOISES Co-signed By: SONIA Admin: 03/04/24 09:06 Dose: 5 units Documented By: MOISES Co-signed By: DANIEL Admin: 03/03/24 20:57 Dose: 1 units Documented By: AURE Co-signed By: DAVID Admin: 03/03/24 17:05 Dose: 4 units Documented By: RACHAEL Co-signed By: ALMA Insulin Glargine (Lantus Per Unit Charge) 10 units SQ BID [facility] Stop: 04/02/24 08:59 Last Admin: 03/04/24 09:07 Dose: 10 units Documented By: MOISES Co-signed By: DANIEL Admin: 03/03/24 20:56 Dose: 10 units Documented By: AURE Co-signed By: DAVID Admin: 03/03/24 08:58 Dose: 10 units Documented By: RACHAEL Co-signed By: SONIA Levothyroxine Sodium (Levothyroxine Sodium 100 Mcg Tablet) 100 mcg PO DAILYBB [facility] Stop: 04/03/24 08:59 Last Admin: 03/04/24 09:11 Dose: 100 mcg Documented By: MOISES Discontinued Medications Acetaminophen (Acetaminophen 1000 Mg/100 Ml Iv) Confirm Administered Dose 1,000 mg IV .STK-MED ONE Stop: 03/03/24 12:05 Last Admin: 03/03/24 13:04 Dose: 1,000 mg Documented By: TORO Fentanyl Citrate (Fentanyl Citrate Pf 100 Mcg/2 Ml Vial) Confirm Administered Dose 100 mcg .ROUTE .STK-MED ONE Stop: 03/03/24 12:05 Last Admin: 03/03/24 13:33 Dose: Not Given Documented By: RACHAEL Piperacillin Sod/Tazobactam Sod (Zosyn) 4.5 gm in 100 mls @ 200 mls/hr IV NOW ONE; Protocol Stop: 03/02/24 21:45 Last Infusion: 03/02/24 23:02 Dose: Infused Documented By: [facility] Admin: 03/02/24 22:31 Dose: 200 mls/hr Documented By: SRL Acetaminophen (Ofirmev) 1,000 mg in 100 mls @ 400 mls/hr IV NOW STA Stop: 03/02/24 21:31 Last Infusion: 03/02/24 22:01 Dose: Infused Documented By: Admin: 03/02/24 21:37 Dose: 400 mls/hr Documented By: SRL Pantoprazole Sodium (Protonix) 40 mg in 10 mls @ 5 mls/min IV NOW ONE Stop: 03/02/24 21:18 Last Admin: 03/02/24 22:31 Dose: 5 mls/min Documented By: SR Sodium Chloride (Nss) 1,000 mls @ 999 mls/hr IV .Q1H1M ONE Stop: 03/03/24 04:15 Last Infusion: 03/03/24 05:12 Dose: Infused Documented By: Admin: 03/03/24 03:41 Dose: 999 mls/hr Documented By: [facility] Potassium Chloride/Sodium Chloride (Normal Saline W/20 Meq Kcl) 20 meq in 1,000 mls @ 100 mls/hr IV .Q10H [facility] Stop: 03/03/24 14:44 Last Infusion: 03/03/24 16:09 Dose: Infused Documented By: Admin: 03/03/24 05:54 Dose: 100 mls/hr Documented By: [facility] Pantoprazole Sodium (Protonix) 40 mg in 10 mls @ 5 mls/min IV DAILY [facility] Stop: 04/02/24 08:59 Last Admin: 03/04/24 09:09 Dose: 5 mls/min Documented By: Admin: 03/03/24 08:58 Dose: 5 mls/min Documented By: RACHAEL Piperacillin Sod/Tazobactam Sod (Zosyn) 4.5 gm in 100 mls @ 200 mls/hr IV NOW STA; Protocol Stop: 03/03/24 07:44 Last Infusion: 03/03/24 08:11 Dose: Infused Documented By: Admin: 03/03/24 07:32 Dose: 200 mls/hr Documented By: RACHAEL Insulin Aspart (Insulin Aspart Per Unit Charge) 0 units SC Q6 [facility] Stop: 04/02/24 05:59 Last Admin: 03/03/24 12:04 Dose: Not Given Documented By: Admin: 03/03/24 07:13 Dose: 2 units Documented By: XAVIER Co-signed By: JONATAN Melatonin (Melatonin 3 Mg Tab) 9 mg PO NOW STA Stop: 03/03/24 19:51 Last Admin: 03/03/24 20:57 Dose: 9 mg Documented By: AURE Imaging Data Radiologist's Impression: Abdomen Ultrasound 03/02/24 21:16 Exam(s): US ABDOMEN LIMITED EXAM: US Abdomen Limited, Right Upper Quadrant CLINICAL HISTORY: Reason for exam: RUQ pain. TECHNIQUE: Real-time ultrasound of the right upper quadrant with image documentation. COMPARISON: No relevant prior studies available. FINDINGS: Liver: The visualized portions are unremarkable.. No intrahepatic bile duct dilation. Gallbladder: No wall thickening.. No gallstones. A negative Mayfield sign was reported. Common bile duct: Unremarkable as visualized. No stones. The common bile duct measured 1.8 mm. Pancreas: The pancreas is limitedly visualized. The visualized portions are unremarkable.. Right kidney: No stones. No hydronephrosis. IMPRESSION: Unremarkable right upper quadrant ultrasound, as described above Electronically signed by: Luis Eduardo Starr MD 03/03/24 00:33 AM Abdomen/Pelvis CT 03/03/24 00:37 EXAM: CT abd pelvis IV con only CLINICAL HISTORY: RUQ pain, leukocytosis, 93 ML OPTIRAY 320 INPATIENT TECHNIQUE: CT of the abdomen and pelvis was performed with contrast, with the following protocol: axial images with, and reconstructed coronal and sagittal images. One of the following dose reduction techniques was utilized for this exam: Automated exposure control, adjustment of the mA and/or kV according to patient size, and use of iterative reconstruction. COMPARISON: Comparison is made with CT Abdomen and Pelvis dated 04/02/2016 FINDINGS: Abdomen: Liver: Normal in size, shape, and density. Evidence of multiple enumerable variable sizes irregular ill/well-defined hypoechoic focal lesions largest measures 2.4 x 2.2 cm showing heterogenous enhancement could be metastatic for clinical correlation and further evaluation. Hepatic vasculature and biliary ducts are unremarkable. Gallbladder and Biliary System: The gallbladder is normal in size however shows an edematous wall that could be secondary to hepatic disease or non-calculus cholecystitis for clinical correlation The common bile duct is normal in caliber without dilation. Pancreas: Pancreatic head, body, and tail are visualized and appear normal in size and density. No pancreatic masses or calcifications were noted. The pancreatic duct is not dilated. Spleen: Surgically removed with a clear surgical bed. Kidneys and Adrenal Glands: Both kidneys are normal in size, shape, and position. Cortical thickness is within normal limits. No renal calculi or hydronephrosis. Malrotated right kidney. Bilateral extrarenal pelvis. Adrenal glands are unremarkable with no evidence of masses or hyperplasia. Pelvis: Urinary Bladder: Normal in contour and wall thickness. No intraluminal lesions were identified. Uterus: Normal in size and contour. No masses or abnormal thickening. Ovaries: Not well visualized but no gross abnormalities were noted. Cervix: No evidence of mass or abnormal thickening. Peritoneal and Retroperitoneal Structures: No free fluid or abnormal fluid collections were identified within the abdomen or pelvis. No lymphadenopathy was noted. Bowel: The visualized bowel loops are normal in caliber and appearance. No evidence of bowel obstruction or wall thickening. Non-complicated colonic diverticulae. The appendix is unremarkable. Bones and Soft Tissues: No pathological lymph nodes were noted. Mild generalized subcutaneous edema. Right sacral ala small sclerotic bone lesion. Bilateral retroareolar prominent breast tissue for Ultrasound evaluation. Bilateral lung lower lobe atelectatic bands IMPRESSION: 1. Newly seen multiple enumerable variable sizes irregular ill/well-defined hypoechoic focal lesions largest measures 2.4 x 2.2 cm showing heterogenous enhancement could be metastatic for clinical correlation and further evaluation. 2. Newly seen GB edematous wall that could be secondary to hepatic disease or non-calculus cholecystitis for clinical correlation. 3. Stable Non-complicated colonic diverticulae. 4. Bilateral retroareolar slightly prominent breast tissue for Ultrasound evaluation. Electronically signed by Cristiano Chavez 03-03-2024 03:01 AM Discharge Plan Visit Data Chief Complaint: Abnormal Labs/Diagnostic Testing Stated Complaint: UPPER RT QUADRANT, ABN LABS ED Provider: Chanda Wright Discharge Problem: Abdominal pain, Leukocytosis, Abnormal LFTs, Lesion of liver Patient Disposition: Admitted As Inpatient Discharge Instructions Interventions: ED Discharge Assessment Last Done: 03/03/24 06:20
[2024-03-02] MEDS: ACETAMINOPHEN 1,000 MG/100 ML VIAL IV STA (21:37)
[2024-03-02] MEDS: PIPERACILLIN/TAZOBACTAM 4.5 GM/100 ML BAG IV ONE (22:31)
[2024-03-02] MEDS: PANTOprazole 40 MG/10 ML SYR IV ONE (22:31)
--- NOTE | 2024-03-03 00:34 | Ultrasound Report ---
Exam(s): US ABDOMEN LIMITED EXAM: US Abdomen Limited, Right Upper Quadrant CLINICAL HISTORY: Reason for exam: RUQ pain. TECHNIQUE: Real-time ultrasound of the right upper quadrant with image documentation. COMPARISON: No relevant prior studies available. FINDINGS: Liver: The visualized portions are unremarkable.. No intrahepatic bile duct dilation. Gallbladder: No wall thickening.. No gallstones. A negative Mayfield sign was reported. Common bile duct: Unremarkable as visualized. No stones. The common bile duct measured 1.8 mm. Pancreas: The pancreas is limitedly visualized. The visualized portions are unremarkable.. Right kidney: No stones. No hydronephrosis. IMPRESSION: Unremarkable right upper quadrant ultrasound, as described above Electronically signed by: Luis Eduardo Starr MD 03/03/24 00:33 AM
--- NOTE | 2024-03-03 03:03 | CT Scan Report ---
EXAM: CT abd pelvis IV con only CLINICAL HISTORY: RUQ pain, leukocytosis, 93 ML OPTIRAY 320 INPATIENT TECHNIQUE: CT of the abdomen and pelvis was performed with contrast, with the following protocol: axial images with, and reconstructed coronal and sagittal images. One of the following dose reduction techniques was utilized for this exam: Automated exposure control, adjustment of the mA and/or kV according to patient size, and use of iterative reconstruction. COMPARISON: Comparison is made with CT Abdomen and Pelvis dated 04/02/2016 FINDINGS: Abdomen: Liver: Normal in size, shape, and density. Evidence of multiple enumerable variable sizes irregular ill/well-defined hypoechoic focal lesions largest measures 2.4 x 2.2 cm showing heterogenous enhancement could be metastatic for clinical correlation and further evaluation. Hepatic vasculature and biliary ducts are unremarkable. Gallbladder and Biliary System: The gallbladder is normal in size however shows an edematous wall that could be secondary to hepatic disease or non-calculus cholecystitis for clinical correlation The common bile duct is normal in caliber without dilation. Pancreas: Pancreatic head, body, and tail are visualized and appear normal in size and density. No pancreatic masses or calcifications were noted. The pancreatic duct is not dilated. Spleen: Surgically removed with a clear surgical bed. Kidneys and Adrenal Glands: Both kidneys are normal in size, shape, and position. Cortical thickness is within normal limits. No renal calculi or hydronephrosis. Malrotated right kidney. Bilateral extrarenal pelvis. Adrenal glands are unremarkable with no evidence of masses or hyperplasia. Pelvis: Urinary Bladder: Normal in contour and wall thickness. No intraluminal lesions were identified. Uterus: Normal in size and contour. No masses or abnormal thickening. Ovaries: Not well visualized but no gross abnormalities were noted. Cervix: No evidence of mass or abnormal thickening. Peritoneal and Retroperitoneal Structures: No free fluid or abnormal fluid collections were identified within the abdomen or pelvis. No lymphadenopathy was noted. Bowel: The visualized bowel loops are normal in caliber and appearance. No evidence of bowel obstruction or wall thickening. Non-complicated colonic diverticulae. The appendix is unremarkable. Bones and Soft Tissues: No pathological lymph nodes were noted. Mild generalized subcutaneous edema. Right sacral ala small sclerotic bone lesion. Bilateral retroareolar prominent breast tissue for Ultrasound evaluation. Bilateral lung lower lobe atelectatic bands IMPRESSION: 1. Newly seen multiple enumerable variable sizes irregular ill/well-defined hypoechoic focal lesions largest measures 2.4 x 2.2 cm showing heterogenous enhancement could be metastatic for clinical correlation and further evaluation. 2. Newly seen GB edematous wall that could be secondary to hepatic disease or non-calculus cholecystitis for clinical correlation. 3. Stable Non-complicated colonic diverticulae. 4. Bilateral retroareolar slightly prominent breast tissue for Ultrasound evaluation. Electronically signed by Cristiano Chavez 03-03-2024 03:01 AM
[2024-03-03] MEDS: SODIUM CHLORIDE 0.9% 1,000 ML IV ONE (03:41)
--- NOTE | 2024-03-03 04:36 | History & Physical Report ---
Date of Service March 03, 2024 Assessment & Plan (1) Abnormal LFTs: (2) Abnormal CT of liver: (3) Type 1 diabetes mellitus: History of Present Illness Chief Complaint: The patient presents to the emergency department as a referral from outpatient office due to abnormal patient laboratories. She reports that 2 to 3 days that she has been more fatigued, has had right upper quadrant abdominal pain, fevers and chills. She denies any recent travels or sick exposures. She reports taking Advil. She has had temperature up to 100 F at home Primary Care Provider: Nilo Bryant The patient is a 69-year-old female with a past medical history including vitamin D deficiency, arthritis, hypothyroidism, history of splenectomy, insulin-dependent diabetes mellitus, GERD, gastric ulcer, and insomnia. She presents to the emergency department with symptoms as noted above, and a referral from outpatient office due to abnormal laboratories. Allergies Allergy/AdvReac Type Severity Reaction Status Date / Time meperidine [From Demerol] AdvReac Severe NAUSEA/VOMI Verified 11/30/23 14:09 TING Home Medications Medication Instructions Recorded Confirmed Type ibuprofen 200 mg tablet (Advil) 600 mg PO BID PRN Pain 02/12/20 03/03/24 History blood sugar diagnostic (OneTouch #100 ea 04/05/23 11/30/23 Rx Verio test strips) blood-glucose meter (OneTouch #1 ea 04/05/23 11/30/23 Rx Verio Reflect Meter) lancets 33 gauge (OneTouch Delica #100 ea 04/05/23 11/30/23 Rx Plus Lancet) pen needle, diabetic 32 gauge x #100 ea 04/28/23 11/30/23 Rx 5/16" (Droplet Pen Needle) melatonin 10 mg capsule 10 mg PO HS PRN Sleep 06/02/23 03/03/24 History pen needle, diabetic 31 gauge x #400 ea 06/02/23 11/30/23 Rx 1/4" (Microdot Insulin Pen Needle) lisinopril 2.5 mg tablet 2.5 mg PO QDL 06/30/23 03/03/24 History rosuvastatin 20 mg tablet (Crestor) 20 mg PO QDL 06/30/23 03/03/24 History insulin pump cart,automated,BT #10 ea 09/02/23 11/30/23 Rx (Omnipod 5 G6 Pods (Gen 5) subcutaneous cartridge) insulin pump cartridge,automated #1 ea 09/02/23 11/30/23 Rx dose,BT with controller subcutaneous (Omnipod 5 G6 Intro Kit (Gen 5) subcutaneous cartridge with controller) blood sugar diagnostic (Embrace #100 ea 09/24/23 11/30/23 Rx PRO test strips) levothyroxine 100 mcg tablet 100 mcg PO DAILY #90 tabs 12/15/23 03/03/24 Rx insulin lispro 100 unit/mL 66 unit (0.66 mL) continuous 12/30/23 03/03/24 Rx subcutaneous solution (Humalog subcutaneous infusion DAILY #60 mL U-100 Insulin) lisinopril 2.5 mg tablet 2.5 mg PO QPM 03/03/24 03/03/24 History omeprazole 20 mg capsule,delayed 20 mg PO DIRECTED PRN reflux 03/03/24 03/03/24 History release Past Med/Surg History Problem List Abnormal CT of liver Abnormal LFTs (Acute) Leukocytosis (Acute) Abdominal pain (Acute) Type 1 diabetes mellitus Colon cancer screening Vitamin D deficiency Hyperlipidemia SILVA (dyspnea on exertion) Dizziness Tachycardia Foot pain, left CMC arthritis, thumb, degenerative Nephrolithiasis Urgency incontinence Left foot pain Left knee DJD Contusion of right elbow Status post total right knee replacement Encounter for preoperative screening laboratory testing for COVID-19 virus Trochanteric bursitis, right hip Degenerative arthritis of knee, bilateral Renal colic (Acute) Hypothyroidism Sciatica History of splenectomy itp Medical History (Updated 03/03/24 @ 04:50 by Rich Garcia MD) History of tachycardia [facility] Diabetes mellitus recent diagnosis. following [facility]. History of Graves' disease History of radioactive iodine thyroid ablation History of ITP Kidney stones hx Osteoarthritis Surgical History History of right knee joint replacement Hx of colonoscopy History of lithotripsy Hx of LASIK right Hx of arthroscopy of knee right and left History of tonsillectomy and adenoidectomy Social History Smoking Status: Never smoker Second Hand Exposure: No; Do You Dip or Chew Tobacco: No; Hx Alcohol Use: Yes Hx Substance Use: No Preferred Language: Belarusian Communication Ability: Effective Superior Court Judge Required: No Beliefs That Will Affect Care: None marital status: Current Living Situation: Spouse Feels Safe at Home: Yes Assistive Devices: None Review of Systems Review of Systems: The patient denies chest pain, palpitations, shortness of breath, dyspnea on exertion, cough, lower extremity swelling, sore throat, vomiting, diarrhea , constipation, blood in urine or stool, dysuria, urinary frequency or urgency, lightheadedness, dizziness, headache, memory loss, loss of consciousness, rash, abnormal bruising or bleeding, imbalance, focal weakness, numbness or tingling in arms or legs, generalized arthralgias or myalgias, back or neck pain, or night sweats. The review of systems is otherwise negative other than for that already noted above, and at least 10 systems have been reviewed. Physical Exam Physical Exam: The patient is awake, alert and oriented 3, well developed and well nourished, normocephalic and atraumatic, lying in bed and in no acute distress. HEENT--PERRL, EOMI, mucous membranes and oropharynx dry. Neck--supple. No JVD. No bruits. Thyroid normal, trachea midline, no adenopathy. Heart--normal S1 and S2. No murmurs, rubs or gallops. Lungs--clear bilaterally, no respiratory distress, no accessory muscle use. Abdomen--normal bowel sounds and soft. Right upper quadrant tenderness. Nondistended, no hernias or masses, no organomegaly. Extremities--no cyanosis or clubbing. No edema. Dermatologic--normal skin turgor, normal color, no abnormal lymph nodes, no rash. Neurologic--cranial nerves II through XII grossly intact. Rheumatologic--normal range of motion. Psychiatric--normal affect. Results & Data Results & Data Vital Signs (Past 12 Hours) Vital Signs Temp Pulse Pulse Resp BP BP Pulse Ox 03/03/24 02:00 82 16 117/67 03/03/24 00:38 67 03/02/24 20:57 75 03/02/24 20:38 72 16 142/79 H 99 03/02/24 19:53 36.8 C 83 20 130/73 97 O2 Del Method 03/03/24 02:00 03/03/24 00:38 03/02/24 20:57 03/02/24 20:38 Room Air 03/02/24 19:53 Room Air Laboratory Results Laboratory Results WBC 26.92 K/ul (4.8-10.8) H 03/02/24 20:05 RBC 3.97 M/uL (4.20-5.40) L 03/02/24 20:05 Hgb 12.4 g/dl (12.0-16.0) 03/02/24 20:05 Hct 34.9 % (37.0-47.0) L 03/02/24 20:05 MCV 87.9 fL (80.0-100.0) 03/02/24 20:05 MCH 31.2 pg (25.0-34.0) 03/02/24 20:05 MCHC 35.5 g/dL (32.0-36.0) 03/02/24 20:05 RDW Std Deviation 45.7 fL (36.4-46.3) 03/02/24 20:05 RDW Coeff of Abel 14.2 % (11.5-14.5) 03/02/24 20:05 Plt Count 493 K/uL (130-400) H 03/02/24 20:05 MPV 10.1 fL (9.4-12.4) 03/02/24 20:05 Immature Gran % (Auto) 0.4 % 03/02/24 20:05 Neut % (Auto) 37.0 % 03/02/24 20:05 Lymph % (Auto) 9.1 % 03/02/24 20:05 [place] % (Auto) 4.2 % 03/02/24 20:05 Eos % (Auto) 48.9 % 03/02/24 20:05 Baso % (Auto) 0.4 % 03/02/24 20:05 Neut # (Auto) 9.92 K/uL (1.40-6.50) H 03/02/24 20:05 Lymph # (Auto) 2.46 K/uL (1.20-3.40) 03/02/24 20:05 [place] # (Auto) 1.14 K/uL (0.11-0.59) H 03/02/24 20:05 Eos # (Auto) 13.17 K/uL (0.00-0.50) H 03/02/24 20:05 Baso # (Auto) 0.11 K/uL (0.00-0.20) 03/02/24 20:05 Immature Gran # (Auto) 0.12 K/uL (0.01-0.20) 03/02/24 20:05 Sodium 134 mmol/L (136-145) L 03/02/24 20:05 Potassium 4.0 mmol/L (3.5-5.1) 03/02/24 20:05 Chloride 98 mmol/L (98-107) 03/02/24 20:05 Carbon Dioxide 29 mmol/L (21-32) 03/02/24 20:05 Anion Gap 7 (3-11) 03/02/24 20:05 BUN 17 mg/dl (6-23) 03/02/24 20:05 Creatinine 1.00 mg/dl (0.6-1.2) 03/02/24 20:05 Est Cr Clr Drug Dosing 46.4 ml/min 03/02/24 20:05 eGFR 60.23 03/02/24 20:05 BUN/Creatinine Ratio 17.0 (10-20) 03/02/24 20:05 Glucose 191 mg/dl (70-99(Fasting)) H 03/02/24 20:05 Calcium 9.8 mg/dl (8.6-10.3) 03/02/24 20:05 Total Bilirubin 0.4 mg/dl (0.2-1.0) 03/02/24 20:05 AST 109 U/L (13-39) H 03/02/24 20:05 ALT 144 U/L (7-52) H 03/02/24 20:05 Alkaline Phosphatase 220 U/L (34-104) H 03/02/24 20:05 Total Protein 7.4 gm/dl (6.0-8.3) 03/02/24 20:05 Albumin 3.7 gm/dl (3.4-5.0) 03/02/24 20:05 Globulin 3.7 gm/dl (2.5-4.0) 03/02/24 20:05 Albumin/Globulin Ratio 1.0 (0.9-2) 03/02/24 20:05 Lipase 28 U/L (11-82) 11/07/24 20:05 Procalcitonin 2.80 ng/ml (0-0.5) H 03/02/24 21:16 Urine Color Yellow 03/02/24 20:15 Urine Appearance Clear (Clear) 03/02/24 20:15 Urine pH 6.5 (4.5-7.5) 03/02/24 20:15 Ur Specific [place] 1.009 (1.000-1.030) 03/02/24 20:15 Urine Protein Negative (Negative) 03/02/24 20:15 Urine Glucose (UA) Negative (Negative) 03/02/24 20:15 Urine Ketones Negative (Negative) 03/02/24 20:15 Urine Blood Negative (Negative) 03/02/24 20:15 Urine Nitrite Negative (Negative) 03/02/24 20:15 Urine Bilirubin Negative (Negative) 03/02/24 20:15 Urine Urobilinogen Negative (Negative) 03/02/24 20:15 Ur Leukocyte Esterase Negative (Negative) 03/02/24 20:15 Impressions Abdomen Ultrasound 03/02/24 21:16 Exam(s): US ABDOMEN LIMITED EXAM: US Abdomen Limited, Right Upper Quadrant CLINICAL HISTORY: Reason for exam: RUQ pain. TECHNIQUE: Real-time ultrasound of the right upper quadrant with image documentation. COMPARISON: No relevant prior studies available. FINDINGS: Liver: The visualized portions are unremarkable.. No intrahepatic bile duct dilation. Gallbladder: No wall thickening.. No gallstones. A negative [place] sign was reported. Common bile duct: Unremarkable as visualized. No stones. The common bile duct measured 1.8 mm. Pancreas: The pancreas is limitedly visualized. The visualized portions are unremarkable.. Right kidney: No stones. No hydronephrosis. IMPRESSION: Unremarkable right upper quadrant ultrasound, as described above Electronically signed by: Luis Eduardo Starr MD 03/03/24 00:33 AM Abdomen/Pelvis CT 03/03/24 00:37 EXAM: CT abd pelvis IV con only CLINICAL HISTORY: RUQ pain, leukocytosis, 93 ML OPTIRAY 320 INPATIENT TECHNIQUE: CT of the abdomen and pelvis was performed with contrast, with the following protocol: axial images with, and reconstructed coronal and sagittal images. One of the following dose reduction techniques was utilized for this exam: Automated exposure control, adjustment of the mA and/or kV according to patient size, and use of iterative reconstruction. COMPARISON: Comparison is made with CT Abdomen and Pelvis dated 04/02/2016 FINDINGS: Abdomen: Liver: Normal in size, shape, and density. Evidence of multiple enumerable variable sizes irregular ill/well-defined hypoechoic focal lesions largest measures 2.4 x 2.2 cm showing heterogenous enhancement could be metastatic for clinical correlation and further evaluation. Hepatic vasculature and biliary ducts are unremarkable. Gallbladder and Biliary System: The gallbladder is normal in size however shows an edematous wall that could be secondary to hepatic disease or non-calculus cholecystitis for clinical correlation The common bile duct is normal in caliber without dilation. Pancreas: Pancreatic head, body, and tail are visualized and appear normal in size and density. No pancreatic masses or calcifications were noted. The pancreatic duct is not dilated. Spleen: Surgically removed with a clear surgical bed. Kidneys and Adrenal Glands: Both kidneys are normal in size, shape, and position. Cortical thickness is within normal limits. No renal calculi or hydronephrosis. Malrotated right kidney. Bilateral extrarenal pelvis. Adrenal glands are unremarkable with no evidence of masses or hyperplasia. Pelvis: Urinary Bladder: Normal in contour and wall thickness. No intraluminal lesions were identified. Uterus: Normal in size and contour. No masses or abnormal thickening. Ovaries: Not well visualized but no gross abnormalities were noted. Cervix: No evidence of mass or abnormal thickening. Peritoneal and Retroperitoneal Structures: No free fluid or abnormal fluid collections were identified within the abdomen or pelvis. No lymphadenopathy was noted. Bowel: The visualized bowel loops are normal in caliber and appearance. No evidence of bowel obstruction or wall thickening. Non-complicated colonic diverticulae. The appendix is unremarkable. Bones and Soft Tissues: No pathological lymph nodes were noted. Mild generalized subcutaneous edema. Right sacral ala small sclerotic bone lesion. Bilateral retroareolar prominent breast tissue for Ultrasound evaluation. Bilateral lung lower lobe atelectatic bands IMPRESSION: 1. Newly seen multiple enumerable variable sizes irregular ill/well-defined hypoechoic focal lesions largest measures 2.4 x 2.2 cm showing heterogenous enhancement could be metastatic for clinical correlation and further evaluation. 2. Newly seen GB edematous wall that could be secondary to hepatic disease or non-calculus cholecystitis for clinical correlation. 3. Stable Non-complicated colonic diverticulae. 4. Bilateral retroareolar slightly prominent breast tissue for Ultrasound evaluation. Electronically signed by Cristiano Chavez 03-03-2024 03:01 AM Code Status & VTE Plan Code Status Full code VTE Prophylaxis Plan VTE Prophylaxis will be ordered: Yes Supervising Physician Co-Signing Physician Notes Abnormal LFTs with abnormal CT scan of liver- AST 109, ALT 144, alkaline phosphatase 220 CT scan of abdomen and pelvis shows newly seen multiple innumerable variable sized irregular ill/well-defined hypoechoic focal lesions showing heterogeneous enhancement concerning for metastatic disease versus other Gallbladder wall is edematous, likely secondary to hepatic disease or noncalculus cholecystitis Bilateral retroareolar slightly prominent breast tissue ultrasound evaluation. Patient reports that she has had a mammogram within the past year Patient reports having had a recent negative colonoscopy from Dr. Villafana Consult oncology Dr. Rutherford Consult gastroenterology Dr. Watts Diabetes mellitus, insulin requiring- Patient has been using an insulin pump In hospital will place on glargine and sliding scale coverage PG Care Time/CCT Total # of Minutes Spent Total Time Spent with Patient: Total time spent is greater than 50% in coordination of care (as documented) at patient's floor/unit and/or counseling patient: Coding Level of Care Code 76802 INT INP/OBS CARE 3/75MIN Diagnoses Abnormal LFTs R79.[address] of liver R93.2 Type 1 diabetes mellitus without complication E10.9 Diabetes mellitus complication status: without complication (3) Type 1 diabetes mellitus Diabetes mellitus complication status: without complication Qualified Code(s): E10.9 - Type 1 diabetes mellitus without complications
[2024-03-03] MEDS ORDERED: DEXTROSE 50% 50 ML SYRINGE IV PRN (04:55)
[2024-03-03] MEDS ORDERED: GLUCOSE 40% GEL 15 GM TUBE PO PRN (04:55)
[2024-03-03] MEDS ORDERED: GLUCOSE 10 TAB/TUBE PO PRN (04:55)
[2024-03-03] MEDS ORDERED: CARBOHYDRATES FOR HYPOGLYCEMIA PO PRN (04:55)
[2024-03-03] MEDS ORDERED: GLUCAGON FOR INJ 1 MG VIAL SQ PRN (04:55)
[2024-03-03] MEDS: NSS + 20MEQ KCL 20 MEQ/1,000 ML BAG IV SCH (05:54)
[2024-03-03] MEDS ORDERED: ONDANSETRON INJ 2 MG/ML 2 ML VIAL IV PRN (07:09)
[2024-03-03] MEDS: INSULIN ASPART PER UNIT CHARGE SC SCH ×2 (07:13→17:05)
[2024-03-03] MEDS ORDERED: INFLUENZA VACC TS2024-25(65y+)/PF (IIV3) 0.5mL Syr IM ONE (07:16)
[2024-03-03] MEDS: 4.5GM X1 IV STA (07:32)
--- NOTE | 2024-03-03 08:13 | Oncology Consultation ---
Date of Consultation March 03, 2024 Assessment & Plan (1) Eosinophilia: (2) Abnormal CT of liver: (3) Abnormal LFTs: Plan Patient who presented with fatigue, fever with labs revealing leukocytosis with eosinophilia, transaminitis and CT abdomen concerning for liver metastasis. -Discussed case with IR, liver lesions were not seen on abdominal ultrasound and so will be difficult to biopsy. Since patient has significant eosinophilia important to rule out hematologic malignancy such as eosinophilic leukemia, systemic mastocytosis/mast cell leukemia, primary hypereosinophilic syndrome. Will therefore recommend peripheral smear review by pathology and bone marrow biopsy. If results are concerning for hematologic malignancy, would have to consider transferring to a tertiary center. -Although LFTs and liver imaging findings may be related to hematologic malignancy, agree with GI/surgery consult to rule out other potential causes such as cholecystitis. Thank you for this consult. Hematology will follow while patient is in the hospital. Please feel free to call if you have any questions History of Present Illness Reason for Consultation: abnormal LFT's and CT A/P Attending Physician: Javon Borja MD History of Present Illness 69-year-old female who was admitted to [facility] due to abnormal labs. She states that over the last couple of weeks, she has experienced increasing fatigue, right upper quadrant abdominal pain and fever. Outpatient labs were abnormal for which she was advised to present to the ED. On arrival at the ED, labs revealed leukocytosis with white cell count of 26.92, hemoglobin of 12.4, hematocrit 34.9, platelet count of 493,000. WBC di fferential revealed ANC of 9.9, also lymphocyte count of 2.46, monocyte count of 1.14 and eosinophilia with eosinophil count of 13.17. LFTs also abnormal with AST of 109, ALT of 144 and alkaline phosphatase of 220. Urinalysis was unremarkable. Ultrasound abdomen was unremarkable. CT abdomen and pelvis revealed multiple enumerable variable sizes irregular ill/well-defined hypoechoic focal lesions largest measures 2.4 x 2.2 cm showing heterogenous enhancement could be metastatic,Newly seen GB edematous wall that could be secondary to hepatic disease or non-calculus cholecystitis for clinical correlation and bilateral retroareolar slightly prominent breast tissue for Ultrasound evaluation. She states that she had splenectomy more than 20 years ago for ITP. Of note, CBC on 12/16/2023 was normal with WBC of 6.84 Allergies Allergy/AdvReac Type Severity Reaction Status Date / Time meperidine [From Demerol] AdvReac Severe NAUSEA/VOMI Verified 11/30/23 14:09 TING Home Medications Medication Instructions Recorded Confirmed Type ibuprofen 200 mg tablet (Advil) 600 mg PO BID PRN Pain 02/12/20 03/03/24 History blood sugar diagnostic (OneTouch #100 ea 04/05/23 11/30/23 Rx Verio test strips) blood-glucose meter (OneTouch #1 ea 04/05/23 11/30/23 Rx Verio Reflect Meter) lancets 33 gauge (OneTouch Delica #100 ea 04/05/23 11/30/23 Rx Plus Lancet) pen needle, diabetic 32 gauge x #100 ea 04/28/23 11/30/23 Rx 5/16" (Droplet Pen Needle) melatonin 10 mg capsule 10 mg PO HS PRN Sleep 06/02/23 03/03/24 History pen needle, diabetic 31 gauge x #400 ea 06/02/23 11/30/23 Rx 1/4" (Microdot Insulin Pen Needle) lisinopril 2.5 mg tablet 2.5 mg PO QDL 06/30/23 03/03/24 History rosuvastatin 20 mg tablet (Crestor) 20 mg PO QDL 06/30/23 03/03/24 History insulin pump cart,automated,BT #10 ea 09/02/23 11/30/23 Rx (Omnipod 5 G6 Pods (Gen 5) subcutaneous cartridge) insulin pump cartridge,automated #1 ea 09/02/23 11/30/23 Rx dose,BT with controller subcutaneous (Omnipod 5 G6 Intro Kit (Gen 5) subcutaneous cartridge with controller) blood sugar diagnostic (Embrace #100 ea 09/24/23 11/30/23 Rx PRO test strips) levothyroxine 100 mcg tablet 100 mcg PO DAILY #90 tabs 12/15/23 03/03/24 Rx insulin lispro 100 unit/mL 66 unit (0.66 mL) continuous 12/30/23 03/03/24 Rx subcutaneous solution (Humalog subcutaneous infusion DAILY #60 mL U-100 Insulin) lisinopril 2.5 mg tablet 2.5 mg PO QPM 03/03/24 03/03/24 History omeprazole 20 mg capsule,delayed 20 mg PO DIRECTED PRN reflux 03/03/24 03/03/24 History release Patient History Medical History (Updated 03/03/24 @ 09:20 by Janneth Rutherford MD) History of tachycardia [facility] Diabetes mellitus recent diagnosis. following [facility]. History of Graves' disease History of radioactive iodine thyroid ablation History of ITP Kidney stones hx Osteoarthritis Surgical History History of right knee joint replacement Hx of colonoscopy History of lithotripsy Hx of LASIK right Hx of arthroscopy of knee right and left History of tonsillectomy and adenoidectomy Social History Smoking Status: Never smoker Second Hand Exposure: No; Do You Dip or Chew Tobacco: No; Tobacco Cessation Education Requested by Patient: No Hx Alcohol Use: No Hx Substance Use: No Preferred Language: Greek Communication Ability: Effective Chairman Ceo Required: No Beliefs That Will Affect Care: None marital status: Current Living Situation: Spouse Other Information That Helps Us Care for You: No Feels Safe at Home: Yes Safety Concerns: Feels Safe At This Time Assistive Devices: None Results & Data Vital Signs (Past 12 Hours) Vital Signs Temp Pulse Pulse Resp BP BP Pulse Ox 03/03/24 07:05 37 C 71 18 128/87 95 03/03/24 05:21 76 03/03/24 05:11 69 16 122/71 98 03/03/24 05:03 70 16 122/71 94 03/03/24 02:00 71 18 117/67 95 03/03/24 02:00 82 16 117/67 03/03/24 00:38 67 03/03/24 00:15 70 20 123/64 93 03/02/24 20:57 75 03/02/24 20:38 72 16 142/79 H 99 O2 Del Method 03/03/24 07:05 Room Air 03/03/24 05:21 03/03/24 05:11 Room Air 03/03/24 05:03 Room Air 03/03/24 02:00 Room Air 03/03/24 02:00 03/03/24 00:38 03/03/24 00:15 Room Air 03/02/24 20:57 03/02/24 20:38 Room Air
[2024-03-03] MEDS: PANTOprazole 40 MG/10 ML SYR IV SCH (08:58)
[2024-03-03] MEDS: LANTUS PER UNIT CHARGE SQ SCH (08:58)
--- NOTE | 2024-03-03 10:29 | Gastrointestinal Consultation ---
<Statement entered by Oleksandr Watts MD - 03/03/24 17:04> Patient seen and examined. Case discussed with Eron PRYOR. Suspect underlying metastatic disease but she has had recent mamogram and colonoscopy. Rec: Oncology consult Obtain tissue if able either via IR or Surgery If infectious etiology considered ID consult may be helpful Can check AFP. Multifocal HCC a possibility although less likely. Dr. Hernandes takes over service [facility]. Date of Consultation March 03, 2024 Assessment & Plan (1) Abnormal CT of liver: (2) Abnormal LFTs: Plan 69 year old female admitted with fatigue, fevers, RUQ pain with elevation in LFTS, wbc, and imaging suggestive of liver lesions concerning for metastatic disease. Case was discussed with Dr. Watts. - check AFP, if only slight elevation, then this is likely unremarkable, but if there is a significant elevation, would recommend further work up. - I reviewed oncology notes and she is planned to have a bone marrow biopsy. Will await the results of this. - per oncology note, IR felt lesions would be difficult to biopsy. - may want to consider pelvic US to further evaluate for any signs of primary malignancy since ovaries not well seen on CT. - would also consider an ID consult for opinion. History of Present Illness Reason for Consultation: abnormal LFTs/CT liver Requesting Physician: Rich Garcia MD Attending Physician: Javon Borja MD History of Present Illness Patient is a 69 year old female with a past medical history of vitamin D deficiency, arthritis, hypothyroidism, history of splenectomy, insulin-dependent diabetes mellitus, GERD, gastric ulcer, and insomnia who presented to the ED on 03/02 with complaints of fatigue and fevers over the course of two weeks. she also tells me she has been having issues with RUQ pain. she had significant elevation in wbc at 26.92. She had CT scan showing lesions in her liver concerning for metastatic disease. LFTs were elevated. She has some nauesa, no emesis. no reflux. no changes in bowels. no brbpr or melena. CT 03/02 Newly seen multiple enumerable variable sizes irregular ill/well- defined hypoechoic focal lesions largest measures 2.4 x 2.2 cm showing heterogenous enhancement could be metastatic for clinical correlation and further evaluation. Newly seen GB edematous wall that could be secondary to hepatic disease or non-calculus cholecystitis for clinical correlation. 03/02/24 AST 109, ALT 144, Alk phos 220, t bili 0.4. Colonoscopy 07/14/23 internal hemorrhoids and diverticulosis. Allergies Allergy/AdvReac Type Severity Reaction Status Date / Time meperidine [From Demerol] AdvReac Severe NAUSEA/VOMI Verified 11/30/23 14:09 TING Home Medications Medication Instructions Recorded Confirmed Type ibuprofen 200 mg tablet (Advil) 600 mg PO BID PRN Pain 02/12/20 03/03/24 History blood sugar diagnostic (OneTouch #100 ea 04/05/23 11/30/23 Rx Verio test strips) blood-glucose meter (RevolverTouch #1 ea 04/05/23 11/30/23 Rx Verio Reflect Meter) lancets 33 gauge (RevolverTouch Delica #100 ea 04/05/23 11/30/23 Rx Plus Lancet) pen needle, diabetic 32 gauge x #100 ea 04/28/23 11/30/23 Rx 5/16" (Droplet Pen Needle) melatonin 10 mg capsule 10 mg PO HS PRN Sleep 06/02/23 03/03/24 History pen needle, diabetic 31 gauge x #400 ea 06/02/23 11/30/23 Rx 1/4" (Microdot Insulin Pen Needle) lisinopril 2.5 mg tablet 2.5 mg PO QDL 06/30/23 03/03/24 History rosuvastatin 20 mg tablet (Crestor) 20 mg PO QDL 06/30/23 03/03/24 History insulin pump cart,automated,BT #10 ea 09/02/23 11/30/23 Rx (Omnipod 5 G6 Pods (Gen 5) subcutaneous cartridge) insulin pump cartridge,automated #1 ea 09/02/23 11/30/23 Rx dose,BT with controller subcutaneous (Omnipod 5 G6 Intro Kit (Gen 5) subcutaneous cartridge with controller) blood sugar diagnostic (Embrace #100 ea 09/24/23 11/30/23 Rx PRO test strips) levothyroxine 100 mcg tablet 100 mcg PO DAILY #90 tabs 12/15/23 03/03/24 Rx insulin lispro 100 unit/mL 66 unit (0.66 mL) continuous 12/30/23 03/03/24 Rx subcutaneous solution (Humalog subcutaneous infusion DAILY #60 mL U-100 Insulin) lisinopril 2.5 mg tablet 2.5 mg PO QPM 03/03/24 03/03/24 History omeprazole 20 mg capsule,delayed 20 mg PO DIRECTED PRN reflux 03/03/24 03/03/24 History release Patient History Medical History (Updated 03/03/24 @ 09:20 by Janneth Rutherford MD) History of tachycardia [facility] Diabetes mellitus recent diagnosis. following with [facility]. History of Graves' disease History of radioactive iodine thyroid ablation History of ITP Kidney stones hx Osteoarthritis Surgical History History of right knee joint replacement Hx of colonoscopy History of lithotripsy Hx of LASIK right Hx of arthroscopy of knee right and left History of tonsillectomy and adenoidectomy Social History Smoking Status: Never smoker Second Hand Exposure: No; Do You Dip or Chew Tobacco: No; Tobacco Cessation Education Requested by Patient: No Hx Alcohol Use: No Hx Substance Use: No Preferred Language: Lao Communication Ability: Effective Special Procedure Tech Required: No Beliefs That Will Affect Care: None marital status: Current Living Situation: Spouse Other Information That Helps Us Care for You: No Feels Safe at Home: Yes Safety Concerns: Feels Safe At This Time Assistive Devices: None Review of Systems Review of Systems: All systems reviewed & are unremarkable except as noted in HPI & below Physical Exam Constitutional: WD/WN, vitals as above Respiratory: normal respiratory effort, lungs clear to auscultation Cardiovascular: Rate/Rhythm: regular rate and regular rhythm Gastrointestinal (Abdomen): RUQ tenderness to palpation, no guarding, soft, normal bowel sounds. Psychiatric: Orientation: alert and oriented x 3 Affect: euthymic affect Results & Data Vital Signs (Past 12 Hours) Vital Signs Temp Pulse Pulse Resp BP BP Pulse Ox 03/03/24 07:09 70 03/03/24 07:05 98.6 F 71 18 128/87 95 03/03/24 05:21 76 03/03/24 05:11 69 16 122/71 98 03/03/24 05:03 70 16 122/71 94 03/03/24 02:00 71 18 117/67 95 03/03/24 02:00 82 16 117/67 03/03/24 00:38 67 03/03/24 00:15 70 20 123/64 93 O2 Del Method 03/03/24 07:09 03/03/24 07:05 Room Air 03/03/24 05:21 03/03/24 05:11 Room Air 03/03/24 05:03 Room Air 03/03/24 02:00 Room Air 03/03/24 02:00 03/03/24 00:38 03/03/24 00:15 Room Air Coding Level of Care Code 39102 INT INP/OBS CARE 2/55MIN Diagnoses Abnormal CT of liver R93.2 Abnormal LFTs R79.89
--- NOTE | 2024-03-03 12:57 | CT Scan Report ---
CT-guided bone marrow biopsy INDICATION: Eosinophilia PROCEDURE: Procedure and risks were explained. Informed consent was obtained. A final timeout was com pleted. The patient was placed prone on the CT exam table. The left gluteal region was prepped and dr aped in sterile fashion. 1% lidocaine was utilized for skin anesthesia. The patient received 1 g Tyle nol IV. Utilizing CT guidance, an 11-gauge bone biopsy needle was advanced into the left iliac bone. Multiple aspirates and one bone core was obtained and given to the lab. The needle was removed and Band-Aid a pplied. The patient tolerated the procedure well. Vital signs will be monitored on the floor. IMPRESSION: Bone marrow biopsy as above. Performed, dictated, and signed by Chance Zarate PA-C; to be co-signed by Dr. Ronan Santiago. Electronically signed by: Ronan Santiago M.D. 03/03/2024 1:27 PM
[2024-03-03] MEDS: ACETAMINOPHEN 1000 MG/100 ML IV IV ONE (13:04)
[2024-03-03] MEDS: PIPERACILLIN/TAZOBACTAM 4.5 GM/100 ML BAG IV SCH (13:08)
[2024-03-03 13:28] LABS: Basophils # (auto) 0.16 K/uL (0.00-0.20); Basophils % (auto) 0.6 %; Eosinophils # (auto) 14.51 K/uL (0.00-0.50); Eosinophils % (auto) 52.2 %; Hematocrit (blood only) 33.1 % (37.0-47.0); Hemoglobin 11.6 g/dl (12.0-16.0); Immature Granulocytes # (auto) 0.11 K/uL (0.01-0.20); Immature Granulocytes % (auto) 0.4 %; Lymphocytes # (auto) 2.63 K/uL (1.20-3.40); Lymphocytes % (auto) 9.5 %; Mean Corpuscular Volume 88.5 fL (80.0-100.0); Mean Platelet Volume 10.8 fL (9.4-12.4); Neutrophils # (auto) 8.98 K/uL (1.40-6.50); Neutrophils % (auto) 32.3 %; Platelet Count 508 K/uL (130-400); RDW Coefficient of Variation 14.6 % (11.5-14.5); RDW Standard Deviation 46.9 fL (36.4-46.3); Red Blood Count 3.74 M/uL (4.20-5.40); White Blood Count 27.79 K/ul (4.8-10.8)
--- NOTE | 2024-03-03 13:31 | Electrocardiogram Report ---
Test Reason : Blood Pressure : */* mmHG Vent. Rate : 74 BPM Atrial Rate : 74 BPM P-R Int : 172 ms QRS Dur : 80 ms QT Int : 386 ms P-R-T Axes : 51 49 21 degrees QTcB Int : 428 ms Normal sinus rhythm Normal ECG When compared with ECG of 15-Feb-2020 09:45, No significant change was found Confirmed by Mode Alatorre ([id number]) on 03/03/2024 1:31:12 PM Referred By: Nilo Bryant Confirmed By: Mode Alatorre
[2024-03-03] MEDS: fentaNYL citrate PF 100 MCG/2 ML VIAL ONE (13:33)
[2024-03-03] MEDS ORDERED: Nursing to Pharmacy Communication SCH (14:00)
[2024-03-03 14:09] LABS: Bone Marrow Smear SLHOLD
--- NOTE | 2024-03-03 16:48 | Ultrasound Report ---
EXAM: US Pelvis Transabdominal and Transvaginal Complete INDICATION: Liver lesion seen on CT. TECHNIQUE: Real-time complete transabdominal and transvaginal pelvic ultrasound with image documentation. Transvaginal imaging was used for better evaluation of the endometrium and adnexa. COMPARISON: No relevant prior studies available. FINDINGS: Uterus/cervix: No myometrial mass. The uterus measures 5.5 x 3.0 x 3.0 cm. The endometrial stripe measures 0.2 cm in thickness. Right ovary: Could not be visualized due to artifact. No definite adnexal mass. Left ovary: Could not be visualized due to artifact. No definite adnexal mass. Free fluid: No free fluid. Bladder: No significant abnormality noted. Wall is normal thickness for degree of distention. IMPRESSION: Nonvisualization of the ovaries due to artifact. No adnexal masses appreciated. ACT 112: Negative or not required by law. Electronically signed by Diana Louise 03-03-2024 4:47 PM
--- NOTE | 2024-03-03 17:02 | Communication Note ---
Date of Service: March 03, 2024 Patient was seen at 4:50 PM. She was accompanied by her family in the room. Please refer to the H&P dictated earlier this morning for details of prese ntation on admission. She presented due to abnormal labs and was found to have liver lesions. She was seen in consultation by hematology and GI. A bone marrow biopsy was completed today 03/02. She also had a pelvic ultrasound completed. AFP pending. Will continue to treat with IV antibiotics and follow labs
[2024-03-03] MEDS: MELATONIN 3 MG TAB PO STA (20:57)
[2024-03-04 07:02] LABS: Basophils # (auto) 0.19 K/uL (0.00-0.20); Basophils % (auto) 0.8 %; Eosinophils # (auto) 14.03 K/uL (0.00-0.50); Eosinophils % (auto) 57.7 %; Hematocrit (blood only) 34.4 % (37.0-47.0); Hemoglobin 11.7 g/dl (12.0-16.0); Immature Granulocytes % (auto) 0.4 %; Lymphocytes # (auto) 1.83 K/uL (1.20-3.40); Lymphocytes % (auto) 7.5 %; Mean Corpuscular Hemoglobin 30.7 pg (25.0-34.0); Mean Corpuscular Volume 90.3 fL (80.0-100.0); Monocytes # (auto) 1.16 K/uL (0.11-0.59); Monocytes % (auto) 4.8 %; Neutrophils # (auto) 7.01 K/uL (1.40-6.50); Neutrophils % (auto) 28.8 %; Platelet Count 537 K/uL (130-400); RDW Coefficient of Variation 14.6 % (11.5-14.5); RDW Standard Deviation 48.3 fL (36.4-46.3); Red Blood Count 3.81 M/uL (4.20-5.40); White Blood Count 24.32 K/ul (4.8-10.8)
[2024-03-04 07:24] LABS: Albumin Level 3.3 gm/dl (3.4-5.0); BUN Creatinine Ratio 12.6 (10-20); Bilirubin,Total 0.3 mg/dl (0.2-1.0); Calcium 9.3 mg/dl (8.6-10.3); Creatinine Clr Calc Pharmacy 48.9 ml/min; Globulin 3.3 gm/dl (2.5-4.0); Potassium 4.4 mmol/L (3.5-5.1); Total Protein 6.6 gm/dl (6.0-8.3)
[2024-03-04] MEDS: LEVOTHYROXINE SODIUM 100 MCG TABLET PO SCH (09:11)
--- NOTE | 2024-03-04 11:47 | CT Scan Report ---
CT OF THE HEAD WITHOUT CONTRAST CLINICAL HISTORY: r/o brain mets. Liver lesions found COMPARISON STUDY: No previous studies for comparison. CT DOSE: 920.37 mGy.cm TECHNIQUE: Helical axial images of the head were obtained without IV contrast. Automated exposure con trol was utilized for the study. A dose lowering technique was utilized adhering to the principles o f ALARA. FINDINGS: No acute intracranial hemorrhage, midline shift or mass effect is present. The ventricular system is unremarkable. The basal cisterns are patent. No extra-axial collections are present. There are no findings to suggest acute dural sinus thrombosis or acute territorial infarct. No significant calvarial abnormalities are present. Visualized portions of the sinuses and mastoid air cells are khadra ar. IMPRESSION: 1. No acute intracranial findings. 2. No evidence for metastatic disease on unenhanced head CT. ACT 112: Negative or not required by law. Electronically signed by: Ronan Santiago M.D. 03/04/2024 11:44 AM
--- NOTE | 2024-03-04 11:52 | CT Scan Report ---
CT OF THE CHEST WITHOUT IV CONTRAST CLINICAL HISTORY: r/o lung mets. Liver lesions found COMPARISON STUDY: Chest radiograph February 15, 2020. TECHNIQUE: Axial images of the chest were obtained without IV contrast. Images were reviewed in the axial, sagittal, and coronal planes. IV contrast was not administered for this examination. Automat ed exposure control was utilized for the study. A dose lowering technique was utilized adhering to t he principles of ALARA. FINDINGS: No enlarged axillary, mediastinal or hilar lymph nodes are present. Size of the heart is n ormal. There is a trace pericardial effusion. Central airways are patent. No pneumothorax or pleural effusion is present. There is no consolidation. Linear densities within the lungs represent atelectas is. A low suspicion 1.7 cm subpleural nodular opacity within the right lower lobe on image 142 is pre sent. No well-defined pulmonary nodules are present. IMPRESSION: 1. No thoracic lymphadenopathy. 2. 1.7 cm subpleural nodular opacity within the right lower lobe. This is low suspicion and could sim ply represent atelectasis. However, a follow-up chest CT in 6 months to ensure stability is recommend ed. 3. No acute intrathoracic findings. ACT 112: Negative or not required by law. Electronically signed by: Ronan Santiago M.D. 03/04/2024 11:50 AM
--- NOTE | 2024-03-04 13:51 | Hospitalist Progress Note ---
Date of Service March 04, 2024 Assessment & Plan (1) Abnormal LFTs: (2) Abnormal CT of liver: (3) Type 1 diabetes mellitus: Plan Abnormal CT of the liver CT liver showed multiple innumerable variable sizes focal lesions within the liver ? Metastatic disease CT chest showed 1.7 cm subpleural nodular opacity within the right lower lobe which could simply represent atelectasis. Low suspicion for malignancy. A follow-up CT in [address] head was unremarkable Patient underwent bone marrow biopsy on 03/03. No evidence of leukemia on aspirate per prelim result. Final result will not be back until next week. Transaminitis ALT and AST elevated along with alkaline phosphatase Trending down CT showed edematous gallbladder wall, however ultrasound of the gallbladder was unremarkable. The patient was feeling feverish over the past few days along with an elevated white count. She is being treated with IV Zosyn and she is feeling better overall. Her pain is improving. No more fever or feverishness. White count is slightly improved Consult general surgery Continue IV Zosyn Continue to trend white count Insulin-dependent diabetes mellitus type 1 Patient uses a insulin pump which she continues to use in the hospital Hypothyroidism Continue Synthroid Full code DVT prophylaxis: Encourage ambulation Admission and Anticipated Discharge Date Admission Date: March 03, 2024 Subjective Patient was seen and examined at 10:05 AM. She says that she is feeling better overall. Her pain is improved. She does not have the subjective fevers anymore. Review of Systems Review of Systems: All systems reviewed & are unremarkable except as noted in Subjective Physical Exam Physical Exam: General: Awake, conversant Heart: S1, S2/regular rate and rhythm, no murmur rubs or gallops Lungs: Clear to auscultation bilaterally. Normal effort Abdomen: Soft/nondistended. Mild tenderness in the right upper quadrant and epigastrium with no rebound, rigidity or guarding. Extremities: No clubbing/cyanosis. No edema Behavior: Appropriate, cooperative Results & Data Results & Data Vital Signs (Past 12 Hours) Vital Signs Temp Pulse Pulse Resp BP Pulse Ox O2 Del Method 03/04/24 11:54 37.1 C 68 18 122/70 98 Room Air 03/04/24 11:29 63 03/04/24 08:05 36.9 C 66 18 118/72 98 Room Air 03/04/24 02:40 36.7 C 57 L 16 102/63 98 Room Air Laboratory Results Abnormal lab results 03/03/24 03/03/24 03/04/24 Range/Units 16:39 20:14 06:42 WBC 24.32 H (4.8-10.8) K/ul RBC 3.81 L (4.20-5.40) M/uL Hgb 11.7 L (12.0-16.0) g/dl Hct 34.4 L (37.0-47.0) % RDW Std Deviation 48.3 H (36.4-46.3) fL RDW Coeff of Abel 14.6 H (11.5-14.5) % Plt Count 537 H (130-400) K/uL Neut # (Auto) 7.01 H (1.40-6.50) K/uL Guthrie # (Auto) 1.16 H (0.11-0.59) K/uL Eos # (Auto) 14.03 H (0.00-0.50) K/uL Glucose 156 H (70-99(Fasting)) mg/dl POC Glucose 139 H 146 H (70-99) mg/dl AST 48 H (13-39) U/L ALT 96 H (7-52) U/L Alkaline Phosphatase 183 H (34-104) U/L Albumin 3.3 L (3.4-5.0) gm/dl 03/04/24 03/04/24 Range/Units 07:18 11:09 WBC (4.8-10.8) K/ul RBC (4.20-5.40) M/uL Hgb (12.0-16.0) g/dl Hct (37.0-47.0) % RDW Std Deviation (36.4-46.3) fL RDW Coeff of Abel (11.5-14.5) % Plt Count (130-400) K/uL Neut # (Auto) (1.40-6.50) K/uL Guthrie # (Auto) (0.11-0.59) K/uL Eos # (Auto) (0.00-0.50) K/uL Glucose (70-99(Fasting)) mg/dl POC Glucose 153 H 190 H (70-99) mg/dl AST (13-39) U/L ALT (7-52) U/L Alkaline Phosphatase (34-104) U/L Albumin (3.4-5.0) gm/dl Diagnostic Findings Pelvis Ultrasound 03/03/24 15:41 EXAM: US Pelvis Transabdominal and Transvaginal Complete INDICATION: Liver lesion seen on CT. TECHNIQUE: Real-time complete transabdominal and transvaginal pelvic ultrasound with image documentation. Transvaginal imaging was used for better evaluation of the endometrium and adnexa. COMPARISON: No relevant prior studies available. FINDINGS: Uterus/cervix: No myometrial mass. The uterus measures 5.5 x 3.0 x 3.0 cm. The endometrial stripe measures 0.2 cm in thickness. Right ovary: Could not be visualized due to artifact. No definite adnexal mass. Left ovary: Could not be visualized due to artifact. No definite adnexal mass. Free fluid: No free fluid. Bladder: No significant abnormality noted. Wall is normal thickness for degree of distention. IMPRESSION: Nonvisualization of the ovaries due to artifact. No adnexal masses appreciated. ACT 112: Negative or not required by law. Electronically signed by Diana Louise 03-03-2024 4:[address] 03/04/24 11:02 CT OF THE CHEST WITHOUT IV CONTRAST CLINICAL HISTORY: r/o lung mets. Liver lesions found COMPARISON STUDY: Chest radiograph February 15, 2020. TECHNIQUE: Axial images of the chest were obtained without IV contrast. Images were reviewed in the axial, sagittal, and coronal planes. IV contrast was not administered for this examination. Automated exposure control was utilized for the study. A dose lowering technique was utilized adhering to the principles of ALARA. FINDINGS: No enlarged axillary, mediastinal or hilar lymph nodes are present. Size of the heart is normal. There is a trace pericardial effusion. Central airways are patent. No pneumothorax or pleural effusion is present. There is no consolidation. Linear densities within the lungs represent atelectasis. A low suspicion 1.7 cm subpleural nodular opacity within the right lower lobe on image 142 is present. No well-defined pulmonary nodules are present. IMPRESSION: 1. No thoracic lymphadenopathy. 2. 1.7 cm subpleural nodular opacity within the right lower lobe. This is low suspicion and could simply represent atelectasis. However, a follow-up chest CT in 6 months to ensure stability is recommended. 3. No acute intrathoracic findings. ACT 112: Negative or not required by law. Electronically signed by: Ronan Santiago M.D. 03/04/2024 11:[address] 03/04/24 11:02 CT OF THE HEAD WITHOUT CONTRAST CLINICAL HISTORY: r/o brain mets. Liver lesions found COMPARISON STUDY: No previous studies for comparison. CT DOSE: 920.37 mGy.cm TECHNIQUE: Helical axial images of the head were obtained without IV contrast. Automated exposure control was utilized for the study. A dose lowering technique was utilized adhering to the principles of ALARA. FINDINGS: No acute intracranial hemorrhage, midline shift or mass effect is present. The ventricular system is unremarkable. The basal cisterns are patent. No extra-axial collections are present. There are no findings to suggest acute dural sinus thrombosis or acute territorial infarct. No significant calvarial abnormalities are present. Visualized portions of the sinuses and mastoid air cells are clear. IMPRESSION: 1. No acute intracranial findings. 2. No evidence for metastatic disease on unenhanced head CT. ACT 112: Negative or not required by law. Electronically signed by: Ronan Santiago M.D. 03/04/2024 11:44 AM PG Care Time/CCT Total # of Minutes Spent Total Time Spent with Patient: Total time spent is greater than 50% in coordination of care (as documented) at patient's floor/unit and/or counseling patient: Coding Level of Care Code 74540 SUB INP/OBS CARE 2/35MIN Diagnoses Abnormal LFTs R79.[address] of liver R93.2 Type 1 diabetes mellitus without complication E10.9 Diabetes mellitus complication status: without complication (3) Type 1 diabetes mellitus Diabetes mellitus complication status: without complication Qualified Code(s): E10.9 - Type 1 diabetes mellitus without complications
--- NOTE | 2024-03-04 19:46 | Surgery Consultation ---
Date of Consultation March 04, 2024 Assessment & Plan (1) Abnormal CT of liver: The patient has been admitted on the hospitalist service. I evaluated the patient in room 2361: At the present time the patient's exam is not consistent with cholecystitis The patient has had an essentially normal gallbladder ultrasound but there was some edema of her gallbladder wall noted on CT scan. I discussed with the patient that we do not have convincing evidence of cholecystitis and therefore would recommend waiting for the results of patient's oncologic evaluation. If the results of her oncologic evaluation are unrevealing as a cause of her symptoms and concern remains for her gallbladder as a possible culprit of her symptoms the next test of choice would be to obtain a HIDA scan. Again, we will await for oncologic evaluation to be completed prior to entertaining this study At the present time there is no need for acute surgical intervention. Additional recommendations will be forthcoming based on her clinical course as unfolds Supervising Physician Co-Signing Physician Notes pnt d/w KONSTANTIN Meyers, labs and imaging reviewed, agree with above. Admitted with abd pain, imaging showed possible hepatic mets and wbc elevated. Questionable gall bladder wall edema, US normal, no stones. Low likelihood of cholecystitis, could obtain hida to confirm. Would recommend onc workup completed prior to any surgery. History of Present Illness Reason for Consultation: Possible cholecystitis Attending Physician: Javon Borja MD History of Present Illness This is a 69-year-old female who was admitted to [facility] on 03/03/2024. Patient says that she was directed to the emergency department by her primary care team due to some symptoms the patient has been experiencing. Patient says that for approximate the past 2 weeks she has had some undue fatigue. She is also notes an intermittent fevers for approximately 1 week without any discernible explanation. Patient says for approximate past 3 days she has had some minor right upper quadrant pain. She specifically denies any postprandial pain in the past several weeks to months. With her current symptomatology she said that her appetite was slightly decreased but it has improved. She said that she did have some intermittent nausea without vomiting. She denies any weight loss. She denies any change in her bowel habits and denies any signs or symptoms of GI bleed. She denies any pruritus. She denies any difficulty urinating. She denies any recent travel. She denies eating any poorly or undercooked food. Patient denies any prior abdominal surgeries. She also notes that she has had a mammogram which was normal in May of this year and a normal colonoscopy in June of this year. 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 Since arrival to the hospital the patient has had labs and imaging which I independently reviewed. Her current CBC from today shows a white blood cell count of 24.3. Her hemoglobin and hematocrit are 11.7 and 34.4. Her platelet count is 537,000. Chemistry profile showed sodium and potassium as well as the BUN and creatinine are normal. Her total bilirubin is not elevated. Her AST and ALT are 48 and 96 respectively (both of these values have decreased since admission), and her alkaline phosphatase is 183 (this is also decreased from her admission values. Patient has had an abdominal ultrasound that was unremarkable without signs of cholecystitis or cholelithiasis. A CT scan of the abdomen and pelvis was performed that did show a normal size gallbladder however was slightly edematous. The common bile duct was noted be normal on this study. On this study the patient was noted to have several innumerable lesions of her liver concerning for metastatic disease. She also underwent a bone marrow biopsythe results of this are pending. A pelvic ultrasound was performed and no adnexal masses were noted. A CT scan of the chest was performed that showed no mediastinal lymphadenopathy. There was a 1.7 cm subpleural nodule noted on this study. A CT scan of the head was also performed with no evidence of any type of metastatic disease. The patient has had blood cultures sent which are negative to growth to date. Due to the findings on patient's imaging and her symptomatology hematology/oncology has been consulted and the patient is currently undergoing a oncologic evaluation. At the time of my interview she was resting comfortably in bed and she was no distress. Allergies Allergy/AdvReac Type Severity Reaction Status Date / Time meperidine [From Demerol] AdvReac Severe NAUSEA/VOMI Verified 11/30/23 14:09 TING Home Medications Medication Instructions Recorded Confirmed Type ibuprofen 200 mg tablet (Advil) 600 mg PO BID PRN Pain 02/12/20 03/03/24 History blood sugar diagnostic (OneTouch #100 ea 04/05/23 11/30/23 Rx Verio test strips) blood-glucose meter (OneTouch #1 ea 04/05/23 11/30/23 Rx Verio Reflect Meter) lancets 33 gauge (OneTouch Delica #100 ea 04/05/23 11/30/23 Rx Plus Lancet) pen needle, diabetic 32 gauge x #100 ea 04/28/23 11/30/23 Rx 5/16" (Droplet Pen Needle) melatonin 10 mg capsule 10 mg PO HS PRN Sleep 06/02/23 03/03/24 History pen needle, diabetic 31 gauge x #400 ea 06/02/23 11/30/23 Rx 1/4" (Microdot Insulin Pen Needle) lisinopril 2.5 mg tablet 2.5 mg PO QDL 06/30/23 03/03/24 History rosuvastatin 20 mg tablet (Crestor) 20 mg PO QDL 06/30/23 03/03/24 History insulin pump cart,automated,BT #10 ea 09/02/23 11/30/23 Rx (Omnipod 5 G6 Pods (Gen 5) subcutaneous cartridge) insulin pump cartridge,automated #1 ea 09/02/23 11/30/23 Rx dose,BT with controller subcutaneous (Omnipod 5 G6 Intro Kit (Gen 5) subcutaneous cartridge with controller) blood sugar diagnostic (Embrace #100 ea 09/24/23 11/30/23 Rx PRO test strips) levothyroxine 100 mcg tablet 100 mcg PO DAILY #90 tabs 12/15/23 03/03/24 Rx insulin lispro 100 unit/mL 66 unit (0.66 mL) continuous 12/30/23 03/03/24 Rx subcutaneous solution (Humalog subcutaneous infusion DAILY #60 mL U-100 Insulin) lisinopril 2.5 mg tablet 2.5 mg PO QPM 03/03/24 03/03/24 History omeprazole 20 mg capsule,delayed 20 mg PO DIRECTED PRN reflux 03/03/24 03/03/24 History release Patient History Medical History History of tachycardia [facility] Diabetes mellitus recent diagnosis. following with [facility]. History of Graves' disease History of radioactive iodine thyroid ablation History of ITP Kidney stones hx Osteoarthritis Surgical History History of right knee joint replacement Hx of colonoscopy History of lithotripsy Hx of LASIK right Hx of arthroscopy of knee right and left History of tonsillectomy and adenoidectomy Social History Smoking Status: Never smoker Second Hand Exposure: No; Do You Dip or Chew Tobacco: No; Tobacco Cessation Education Requested by Patient: No Hx Alcohol Use: No Hx Substance Use: No Preferred Language: Beninese Communication Ability: Effective Electrical Accessories Ii 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 Required: No Beliefs That Will Affect Care: None marital status: Current Living Situation: Spouse Other Information That Helps Us Care for You: No Feels Safe at Home: Yes Safety Concerns: Feels Safe At This Time Assistive Devices: None Review of Systems Review of Systems: All systems reviewed & are unremarkable except as noted in HPI & below Physical Exam Constitutional: WD/WN, vitals as above Eyes: + anicteric sclerae ENMT: Ears: no hearing impairment and no external ear abnormality Sublingual jaundice is absent Neck: trachea midline Respiratory: normal respiratory effort; no respiratory distress and no labored breathing Cardiovascular: Rate/Rhythm: regular rate and regular rhythm Gastrointestinal (Abdomen): At the time of my exam her abdomen was entirely benign. There is soft without distention. There is no pain with palpation. Musculoskeletal: No calf tenderness Skin: no jaundice Neurologic: moves all extremities Psychiatric: A+Ox3, euthymic affect Results & Data Vital Signs (Past 12 Hours) Vital Signs Temp Pulse Pulse Resp BP Pulse Ox O2 Del Method 03/04/24 15:00 37.6 C H 75 18 105/64 95 Room Air 03/04/24 14:37 80 03/04/24 11:54 37.1 C 68 18 122/70 98 Room Air 03/04/24 11:29 63 03/04/24 08:05 36.9 C 66 18 118/72 98 Room Air PG Care Time/CCT Total # of Minutes Spent Total Time Spent with Patient: Total time spent is greater than 50% in coordination of care (as documented) at patient's floor/unit and/or counseling patient: Coding Level of Care Code 93738 INT INP/OBS CARE 3/75MIN Diagnoses Abnormal CT of liver R93.2
[2024-03-04] MEDS: MELATONIN 3 MG TAB PO PRN (21:43)
[2024-03-05 06:52] LABS: Basophils # (auto) 0.18 K/uL (0.00-0.20); Basophils % (auto) 0.6 %; Eosinophils # (auto) 12.99 K/uL (0.00-0.50); Eosinophils % (auto) 44.6 %; Hematocrit (blood only) 36.6 % (37.0-47.0); Immature Granulocytes # (auto) 0.15 K/uL (0.01-0.20); Immature Granulocytes % (auto) 0.5 %; Lymphocytes # (auto) 3.07 K/uL (1.20-3.40); Lymphocytes % (auto) 10.5 %; Mean Corpuscular Hemoglobin 31.3 pg (25.0-34.0); Mean Corpuscular Hgb Conc 35.5 g/dL (32.0-36.0); Mean Corpuscular Volume 88.2 fL (80.0-100.0); Mean Platelet Volume 10.2 fL (9.4-12.4); Monocytes # (auto) 1.88 K/uL (0.11-0.59); Monocytes % (auto) 6.5 %; Neutrophils # (auto) 10.84 K/uL (1.40-6.50); Neutrophils % (auto) 37.3 %; Platelet Count 607 K/uL (130-400); RDW Coefficient of Variation 14.8 % (11.5-14.5); RDW Standard Deviation 47.7 fL (36.4-46.3); Red Blood Count 4.15 M/uL (4.20-5.40); White Blood Count 29.11 K/ul (4.8-10.8)
[2024-03-05 07:26] LABS: Albumin Level 3.8 gm/dl (3.4-5.0); BUN Creatinine Ratio 13.2 (10-20); Bilirubin,Total 0.5 mg/dl (0.2-1.0); Calcium 9.9 mg/dl (8.6-10.3); Globulin 3.8 gm/dl (2.5-4.0); Potassium 3.8 mmol/L (3.5-5.1); Total Protein 7.6 gm/dl (6.0-8.3)
[2024-03-05 07:43] VITALS: BP 121/76; RESP 20; TEMP 97.9; O2SAT 99
[2024-03-05] MEDS: PANTOprazole 40 MG TAB PO SCH (08:36)
--- NOTE | 2024-03-05 09:21 | Surgery Progress Note ---
Date of Service March 05, 2024 Assessment & Plan (1) Abdominal pain: Plan: Leukocytosis with eosinophilia and multiple liver lesions. On my review, the gallbladder is not very impressive for cholecystitis on imaging and there are no gallstones. I find it very unlikely that she has any type of cholecystitis. If there is further concern, then HIDA scan could be obtained. No surgical intervention indicated at this time Consider HIDA scan if symptoms recur or patient has further concern for cholecystitis Surgery will sign off, call with questions or concerns (2) Lesion of liver: (3) Eosinophilia: (4) Abnormal CT of liver: (5) Type 1 diabetes mellitus: Admission and Anticipated Discharge Date Admission Date: March 03, 2024 Subjective Patient has been tolerating diet, her right upper quadrant pain is not present currently. Physical Exam Constitutional: WD/WN, vitals as above Respiratory: normal respiratory effort, lungs clear to auscultation Cardiovascular: RRR, no murmur, no edema Gastrointestinal (Abdomen): normal bowel sounds, soft, nontender, no hepatosplenomegaly Results & Data Vital Signs (Past 12 Hours) Vital Signs Temp Pulse Pulse Resp BP Pulse Ox O2 Del Method 03/05/24 07:00 36.6 C 69 20 121/76 99 Room Air 03/05/24 05:43 37.2 C 81 18 112/58 L 95 Room Air 03/04/24 22:17 37.6 C H 82 17 110/64 96 Room Air 03/04/24 21:47 66 Laboratory Results Laboratory Results - last 24 hr 03/04/24 03/04/24 03/04/24 11:09 16:15 20:27 WBC RBC Hgb Hct MCV MCH MCHC RDW Std Deviation RDW Coeff of Abel Plt Count MPV Immature Gran % (Auto) Neut % (Auto) Lymph % (Auto) [place] % (Auto) Eos % (Auto) Baso % (Auto) Neut # (Auto) Lymph # (Auto) [place] # (Auto) Eos # (Auto) Baso # (Auto) Immature Gran # (Auto) Sodium Potassium Chloride Carbon Dioxide Anion Gap BUN Creatinine Est Cr Clr Drug Dosing eGFR BUN/Creatinine Ratio Glucose POC Glucose 190 H 163 H 171 H Calcium Total Bilirubin AST ALT Alkaline Phosphatase Total Protein Albumin Globulin Albumin/Globulin Ratio 03/05/24 03/05/24 06:24 07:19 WBC 29.11 H RBC 4.15 L Hgb 13.0 Hct 36.6 L MCV 88.2 MCH 31.3 MCHC 35.5 RDW Std Deviation 47.7 H RDW Coeff of Abel 14.8 H Plt Count 607 H MPV 10.2 Immature Gran % (Auto) 0.5 Neut % (Auto) 37.3 Lymph % (Auto) 10.5 [place] % (Auto) 6.5 Eos % (Auto) 44.6 Baso % (Auto) 0.6 Neut # (Auto) 10.84 H Lymph # (Auto) 3.07 [place] # (Auto) 1.88 H Eos # (Auto) 12.99 H Baso # (Auto) 0.18 Immature Gran # (Auto) 0.15 Sodium 135 L Potassium 3.8 Chloride 99 Carbon Dioxide 28 Anion Gap 8 BUN 12 Creatinine 0.91 Est Cr Clr Drug Dosing 51.0 eGFR 67.45 BUN/Creatinine Ratio 13.2 Glucose 164 H POC Glucose 176 H Calcium 9.9 Total Bilirubin 0.5 AST 36 ALT 86 H Alkaline Phosphatase 215 H Total Protein 7.6 Albumin 3.8 Globulin 3.8 Albumin/Globulin Ratio 1.0 PG Care Time/CCT Total # of Minutes Spent Total Time Spent with Patient: Total time spent is greater than 50% in coordination of care (as documented) at patient's floor/unit and/or counseling patient: Coding Level of Care Code 67587 SUB INP/OBS CARE 2/35MIN Diagnoses Abdominal pain R10.9 Lesion of liver K76.[address] of liver R93.2 Type 1 diabetes mellitus without complication E10.9 Diabetes mellitus complication status: without complication (5) Type 1 diabetes mellitus Diabetes mellitus complication status: without complication Qualified Code(s): E10.9 - Type 1 diabetes mellitus without complications
[2024-03-05 10:14] VITALS: PULSE 79
--- NOTE | 2024-03-05 10:46 | Discharge Summary ---
Date of Service March 05, 2024 Admission HPI Per Admitting Provider The patient is a 69-year-old female with a past medical history including vitamin D deficiency, arthritis, hypothyroidism, history of splenectomy, insulin-dependent diabetes mellitus, GERD, gastric ulcer, and insomnia. She presents to the emergency department with symptoms as noted above, and a referral from outpatient office due to abnormal laboratories. Admission Exam Per Admitting Provider The patient is awake, alert and oriented 3, well developed and well nourished, normocephalic and atraumatic, lying in bed and in no acute distress. HEENT--PERRL, EOMI, mucous membranes and oropharynx dry. Neck--supple. No JVD. No bruits. Thyroid normal, trachea midline, no adenopathy. Heart--normal S1 and S2. No murmurs, rubs or gallops. Lungs--clear bilaterally, no respiratory distress, no accessory muscle use. Abdomen--normal bowel sounds and soft. Right upper quadrant tenderness. Nondistended, no hernias or masses, no organomegaly. Extremities--no cyanosis or clubbing. No edema. Dermatologic--normal skin turgor, normal color, no abnormal lymph nodes, no rash. Neurologic--cranial nerves II through XII grossly intact. Rheumatologic--normal range of motion. Psychiatric--normal affect. Principal Diagnosis Abnormal CT of the liver Transaminitis Discharge Exam General: Awake, conversant Heart: S1, S2/regular rate and rhythm, no murmur rubs or gallops Lungs: Clear to auscultation bilaterally. Normal effort Abdomen: Soft/nondistended. Mild tenderness in the right upper quadrant and epigastrium with no rebound, rigidity or guarding. Extremities: No clubbing/cyanosis. No edema Behavior: Appropriate, cooperative Discharge Data Allergies Allergy/AdvReac Type Severity Reaction Status Date / Time meperidine [From Demerol] AdvReac Severe NAUSEA/VOMI Verified 11/30/23 14:09 TING Consultations 03/03/24 03:38 ED Decision to Admit Stat 03/03/24 04:35 Consult Hematology Routine 03/03/24 04:53 Consult Gastroenterology Routine 03/04/24 13:44 Consult General Surgery Routine Ordered Studies 03/02/24 21:16 US abdomen limited Stat 03/03/24 00:37 CT abd pelvis IV con only Stat 03/03/24 09:00 IR bone marrow bx & asp Routine 03/03/24 15:41 US pelvic complete Routine US transvaginal Routine 03/04/24 11:02 CT chest diagnostic wo con Routine Head CT [CT head/brain wo con] Routine Hospital Course (1) Abnormal LFTs: (2) Abnormal CT of liver: (3) Type 1 diabetes mellitus: Plan Abnormal CT of the liver CT liver showed multiple innumerable variable sizes focal lesions within the liver ? Metastatic disease CT chest showed 1.7 cm subpleural nodular opacity within the right lower lobe which could simply represent atelectasis. Low suspicion for malignancy. A follow-up CT in [address] head was unremarkable Patient underwent bone marrow biopsy on 03/03. No evidence of leukemia on aspirate per preliminary result. Final result will not be back until next week. Plan is for the patient to discharge to home and to follow-up with PCP and oncology for final bone marrow biopsy results as well as to pursue the diagnosis further Transaminitis ALT and AST elevated along with alkaline phosphatase Trending down CT showed edematous gallbladder wall, however ultrasound of the gallbladder was unremarkable. The patient was feeling feverish over the past few days along with an elevated white count. She is being treated with IV Zosyn and she is feeling better overall. Her pain is improving. No more fever or feverishness. General surgery was consulted who did not think that the gallbladder needs to be removed at this point Switch from IV Zosyn to p.o. Augmentin to complete a course because the patient was feeling better on the antibiotics Insulin-dependent diabetes mellitus type 1 Patient uses a insulin pump which she continues to use in the hospital Hypothyroidism Continue Synthroid Discharge to home today Total Time Total Time Spent Total Time Spent (In Minutes): 35 Discharge Plan Discharge Items Patient Disposition: Home - Self-Care Reason For Visit: ABNORMAL LFT'S, ABNORMAL CT A/P Discharge Diagnosis: Abnormal CT of the liver Transaminitis Activity: Resume your previous activity Non-emergency contact: Primary Care Provider Call non-emergency contact if: you have any medication questions and your symptoms worsen Follow-up/Referrals: Nilo Bryant [Primary Care Provider] - Janneth Rutherford MD [Physician] - Diet: Carb Count or DM1 Addtl Attending Provider Instructions: Advised to follow-up with PCP in 1 week Advised to follow-up with oncologist Advised to note that you have been prescribed an antibiotic to complete the course Pending Studies at Discharge: Yes Studies:: Bone marrow biopsy result, alpha-fetoprotein level Stand-Alone Forms: My [facility] Medications and DC Order Prescriptions: New amoxicillin-pot clavulanate [Augmentin] 500-125 mg tablet 1 tab PO BID Qty: 10 0RF Continued (DME) pen needle, diabetic [Droplet Pen Needle] 32 gauge x 5/16" needle See Rx Instructions .Route Qty: 100 0RF Rx Instructions: use 1 needle daily (DME) Embrace PRO test strips Strip See Rx Instructions .Route Qty: 100 3RF Rx Instructions: check fingerstick 3x daily levothyroxine 100 mcg tablet 100 mcg PO DAILY Qty: 90 3RF insulin lispro [Humalog U-100 Insulin] 100 unit/mL solution 66 unit continuous subcutaneous infusion DAILY Qty: 60 3RF Rx Instructions: To be used in an insulin pump (DME) blood-glucose meter [OneTouch Verio Reflect Meter] Misc See Rx Instructions .Route Qty: 1 0RF Rx Instructions: Check fingerstick 3x/day (DME) OneTouch Verio test strips Strip See Rx Instructions .Route Qty: 100 11RF Rx Instructions: Check fingerstick 3x/day (DME) lancets [OneTouch Delica Plus Lancet] 33 gauge misc See Rx Instructions .Route Qty: 100 11RF Rx Instructions: Check fingerstick 3x/day melatonin 10 mg capsule 10 mg PO HS PRN (Reason: Sleep) (DME) pen needle, diabetic [Microdot Insulin Pen Needle] 31 gauge x 1/4" needle See Rx Instructions .Route Qty: 400 5RF Rx Instructions: To be used with insulin pens. (DME) Omnipod 5 G6 Intro Kit (Gen 5) Cartridge See Rx Instructions .Route Qty: 1 0RF Rx Instructions: As directed (DME) Omnipod 5 G6 Pods (Gen 5) Cartridge See Rx Instructions .Route Qty: 10 11RF Rx Instructions: As directed to change cartridge every 3 days ibuprofen [Advil] 200 mg Tablet 600 mg PO BID PRN (Reason: Pain) lisinopril 2.5 mg tablet 2.5 mg PO QDL rosuvastatin [Crestor] 20 mg tablet 20 mg PO QDL lisinopril 2.5 mg tablet 2.5 mg PO QPM omeprazole 20 mg capsule,delayed release(DR/EC) 20 mg PO DIRECTED PRN (Reason: reflux) Discharge Orders: Discharge Order (Routine); Ordered 03/05/24 Ordered By: Javon Galarza/Other Patient Handouts: Bone Marrow Aspiration and Biopsy, Abdominal Pain Admission Data Admit Date/Time: 03/03/24 04:35 Attending Provider: Javon Borja Admit Provider: Rich Garcia Primary Care Provider: Nilo Bryant Other Providers: Janneth Rutherford; Rich Garcia; Oleksandr Watts; Jd Simental Other Interventions: Discharge Summary Assessment (RN) Last Done: 03/05/24 11:40
== END 2024-03-05 12:43 | disposition home or self-care (01) | DRG 941 ==
LOC: ED 19:48 → 2S 03-03 04:35 → SUATTDRO 03-03 04:35 → 2S 03-03 06:20